=== PATIENT | female | born 1955 | race Caucasian/White ===

== ENCOUNTER → 2016-11-05 | Outpatient (CLI) | payer OTHER ==
--- NOTE | 2016-11-05 10:22 | REPMRS ---
Patient History The patient states she has not had a clinical breast exam in over a year. Patient is postmenopausal and has history of high-risk lesion on a previous biopsy. No known family history of cancer. Benign excisional biopsy of the left breast, 2004. High risk excisional biopsy of the left breast. Took tamoxifen for 5 years. Digital Woman Screen Mammo: November 05, 2016 - Exam #: [id number] Bilateral CC and MLO view(s) were taken. Technologist: Virgen Yoder, Technologist Prior study comparison: November 09, 2015, digital woman screen mammo performed at [facility]. November 08, 2014, digital woman screen mammo performed at [facility]. FINDINGS: The breast tissue is heterogeneously dense. This may lower the sensitivity of mammography. There has been no change in the appearance of the mammogram from the prior studies. There is a moderate amount of residual fibroglandular tissue which is fairly symmetric. There is no interval development of dominant mass, areas of architectural distortion, or clustered microcalcification typical of malignancy. ASSESSMENT: BI-RADS/ACR category 1 mammogram. Negative. Recommendation Routine screening mammogram in 1 year (for women over age 40). This mammogram was interpreted with the aid of an FDA-approved computer-aided dectection system. Electronically Signed By: Mario Phillips MD 11/05/16 [id number]
== END ==
LOC: M WHC 09:09
PROVIDERS: ATTEND Family Medicine
DX: Z12.31 Encounter for screening mammogram for malignant neoplasm of breast (principal); R92.8 Other abnormal and inconclusive findings on diagnostic imaging of breast; Z78.0 Asymptomatic menopausal state

== ENCOUNTER → 2017-08-05 | Outpatient (CLI) | payer OTHER | LOC: M WUC 12:28 | DX: S63.601A Unspecified sprain of right thumb, initial encounter (principal); X58.XXXA Exposure to other specified factors, initial encounter; Y92.89 Other specified places as the place of occurrence of the external cause; Y99.9 Unspecified external cause status; Y93.9 Activity, unspecified ==

== ENCOUNTER → 2017-11-19 | Outpatient (CLI) | payer OTHER | LOC: M WHC 10:00 | DX: Z12.31 Encounter for screening mammogram for malignant neoplasm of breast (principal); M89.9 Disorder of bone, unspecified | CPT/HCPCS: 77067 ==

== ENCOUNTER → 2017-11-21 | Outpatient (CLI) | payer OTHER ==
[2017-11-21 18:11] LABS: ANION GAP 9 MEQ/L (8-16); BLOOD UREA NITROGEN 15 MG/DL (7-18); CALCIUM LEVEL 9.1 MG/DL (8.8-10.2); CARBON DIOXIDE LEVEL 28 MEQ/L (21-32); CHLORIDE LEVEL 106 MEQ/L (98-107); CHOLESTEROL LEVEL 198 MG/DL (<200); CHOLESTEROL RISK RATIO 4.212 (<5); CREATININE FOR GFR 0.53 MG/DL (0.55-1.30); GLOMERULAR FILTRATION RATE > 60.0 (>45); GLUCOSE, FASTING 80 MG/DL (70-100); HDL CHOLESTEROL 47 MG/DL (>40); NON-HDL-C 151 MG/DL; POTASSIUM SERUM 4.4 MEQ/L (3.5-5.1); SODIUM LEVEL 143 MEQ/L (136-145); TRIGLYCERIDES LEVEL 110 MG/DL (<150)
== END ==
LOC: M WUC 08:19
DX: Z00.00 Encounter for general adult medical examination without abnormal findings (principal)

== ENCOUNTER 2018-02-11 06:02 | Emergency (ER) | payer OTHER ==
[2018-02-11] MEDS: MECLIZINE 25 MG TABLET PO (07:33)
[2018-02-11 07:50] LABS: BASO % 0.4 % (0.0-1.0); EOS % 0.1 % (0.0-3.0); HEMATOCRIT 41.9 % (36.0-47.0); HEMOGLOBIN 13.8 g/dl (12.0-15.5); IMMATURE GRANULOCYTE % 0.8 % (0-3.0); LYMPH % 11.3 % (24.0-44.0); MEAN CORPUSCULAR HEMOGLOBIN 31.2 pg (27.0-33.0); MEAN CORPUSCULAR HGB CONC 32.9 g/dl (32.0-36.5); MEAN CORPUSCULAR VOLUME 94.6 fl (80.0-96.0); MONO # 0.6 10^3/uL (0.0-0.8); MONO % 6.9 % (0.0-5.0); NEUTROPHILS # 6.7 10^3/uL (1.8-7.7); NEUTROPHILS % 80.5 % (36.0-66.0); PLATELET COUNT, AUTOMATED 245 10^3/uL (150-450); RED BLOOD COUNT 4.43 10^6/uL (4.00-5.40); RED CELL DISTRIBUTION WIDTH 12.3 % (11.5-14.5); WHITE BLOOD COUNT 8.4 10^3/uL (4.0-10.0)
[2018-02-11 08:18] LABS: ANION GAP 8 MEQ/L (8-16); BLOOD UREA NITROGEN 13 MG/DL (7-18); CALCIUM LEVEL 8.8 MG/DL (8.8-10.2); CARBON DIOXIDE LEVEL 26 MEQ/L (21-32); CHLORIDE LEVEL 106 MEQ/L (98-107); CPK CREATINE PHOSPHOKINASE 73 U/L (26-192); CREATININE FOR GFR 0.58 MG/DL (0.55-1.30); GLOMERULAR FILTRATION RATE > 60.0 (>45); GLUCOSE, FASTING 110 MG/DL (70-100); MB/CK RELATIVE INDEX 3.56 (< OR =4); SODIUM LEVEL 140 MEQ/L (136-145); TROPONIN I < 0.02 NG/ML (< 0.10)
== END 2018-02-11 10:08 | disposition home or self-care (01) ==
LOC: M ED 06:02
DX: H83.09 Labyrinthitis, unspecified ear (principal); M06.9 Rheumatoid arthritis, unspecified; K21.9 Gastro-esophageal reflux disease without esophagitis; Z79.899 Other long term (current) drug therapy
CPT/HCPCS: 70450

== ENCOUNTER → 2018-03-08 | Outpatient (REF) | payer OTHER ==
[~2018-03-08] MED LIST: MECL-68 PO; NABU-126; OMEP40CA2; SULF50TA
== END ==
LOC: M WUC 12:41
PROVIDERS: ATTEND Physician Assistant
DX: N39.0 Urinary tract infection, site not specified (principal)

== ENCOUNTER → 2018-03-25 | Outpatient (CLI) | payer OTHER ==
[2018-03-25 19:59] LABS: BLOOD UREA NITROGEN 15 MG/DL (7-18); CALCIUM LEVEL 9.1 MG/DL (8.8-10.2); CARBON DIOXIDE LEVEL 29 MEQ/L (21-32); CHLORIDE LEVEL 106 MEQ/L (98-107); GLOMERULAR FILTRATION RATE > 60.0 (>45); GLUCOSE, FASTING 92 MG/DL (70-100); POTASSIUM SERUM 4.2 MEQ/L (3.5-5.1); SODIUM LEVEL 142 MEQ/L (136-145)
== END ==
LOC: M WUC 17:59
PROVIDERS: ATTEND Physician Assistant
DX: I10 Essential (primary) hypertension (principal)

== ENCOUNTER → 2018-11-13 | Outpatient (CLI) | payer BC ==
[2018-11-13 19:09] LABS: BASO % 0.7 % (0.0-1.0); EOS % 0.2 % (0.0-3.0); HEMATOCRIT 42.7 % (36.0-47.0); HEMOGLOBIN 13.5 g/dl (12.0-15.5); LYMPH # 1.2 10^3/uL (1.5-4.5); LYMPH % 26.4 % (24.0-44.0); MEAN CORPUSCULAR HEMOGLOBIN 30.6 pg (27.0-33.0); MEAN CORPUSCULAR HGB CONC 31.6 g/dl (32.0-36.5); MEAN CORPUSCULAR VOLUME 96.8 fl (80.0-96.0); MONO # 0.5 10^3/uL (0.0-0.8); MONO % 12.1 % (0.0-5.0); NEUTROPHILS # 2.7 10^3/uL (1.8-7.7); NEUTROPHILS % 59.5 % (36.0-66.0); PLATELET COUNT, AUTOMATED 270 10^3/uL (150-450); RED BLOOD COUNT 4.41 10^6/uL (4.00-5.40); WHITE BLOOD COUNT 4.5 10^3/uL (4.0-10.0)
[2018-11-13 19:31] LABS: ALBUMIN 3.9 GM/DL (3.2-5.2); ALT/SGPT 33 U/L (12-78); BILIRUBIN,TOTAL 0.4 MG/DL (0.2-1.0); BLOOD UREA NITROGEN 12 MG/DL (7-18); CARBON DIOXIDE LEVEL 30 MEQ/L (21-32); CHLORIDE LEVEL 109 MEQ/L (98-107); CHOLESTEROL LEVEL 196 MG/DL (<200); CHOLESTEROL RISK RATIO 3.769 (<5); CREATININE FOR GFR 0.57 MG/DL (0.55-1.30); GLOMERULAR FILTRATION RATE > 60.0 (>45); GLUCOSE, FASTING 88 MG/DL (70-100); HDL CHOLESTEROL 52 MG/DL (>40); LDL CHOLESTEROL 125 MG/DL (<100); NON-HDL-C 144 MG/DL; POTASSIUM SERUM 4.9 MEQ/L (3.5-5.1); SODIUM LEVEL 142 MEQ/L (136-145); TRIGLYCERIDES LEVEL 95 MG/DL (<150)
== END ==
LOC: M WUC 08:10
PROVIDERS: ATTEND Physician Assistant
DX: M05.40 Rheumatoid myopathy with rheumatoid arthritis of unspecified site (principal); I10 Essential (primary) hypertension

== ENCOUNTER → 2018-12-03 | Outpatient (CLI) | payer BC ==
--- NOTE | 2018-12-03 15:39 | REP ---
BILATERAL MAMMOGRAM WITH 3D TOMOSYNTHESIS: Family history of breast cancer in sister at age 56. [facility] lifetime risk of breast cancer 12.6%. Bilateral mammography performed in the MLO and CC projections with 3D tomosynthesis. Comparison made with prior studies, most recent of which is 11/19/2017. Multiple new pleomorphic ductal type calcifications are seen in the outer left breast somewhat posteriorly. These are pleomorphic and appear suspicious. No other cluster of microcalcifications are seen. There is no mass or architectural distortion. IMPRESSION: BIRADS 0: BI-RADS/ACR category 0 mammogram, Incomplete: Need additional imaging evaluation and/or prior mammograms for comparison. Multiple new clustered pleomorphic ductal type calcifications in the outer left breast posteriorly. Recommend magnification views to further evaluate. This mammogram was interpreted with the aid of an FDA-approved computer-aided detection system. The patient states she has not had a clinical breast exam in over a year. The patient letter being requested is M0.
== END ==
LOC: M WHC 12:47
PROVIDERS: ATTEND Physician Assistant
DX: R92.2 Inconclusive mammogram (principal); Z80.3 Family history of malignant neoplasm of breast

== ENCOUNTER → 2018-12-16 | Outpatient (CLI) | payer BC ==
--- NOTE | 2018-12-16 09:37 | REP ---
DIAGNOSTIC MAMMOGRAM OF THE LEFT BREAST: Multiple magnification views of the left breast performed and correlated with the recent mammogram of 12/03/2018, and compared to prior studies. These additional magnification views confirm the presence of multiple pleomorphic ductal type microcalcifications in the outer left breast posteriorly. These are suspicious. Stereotactic biopsy is recommended. IMPRESSION: BIRADS 4: BI-RADS/ACR category 4 mammogram. Suspicious Abnormality - biopsy should be considered. Clustered pleomorphic ductal microcalcifications outer left breast posteriorly. Recommend stereotactic biopsy and postprocedure mammogram. ACR 4 suspicious. The patient letter being requested is M4. Electronically Signed by Mario Phillips MD 12/16/2018 05:48 P
== END ==
LOC: M RAD 08:04
PROVIDERS: ATTEND Physician Assistant
DX: R92.0 Mammographic microcalcification found on diagnostic imaging of breast (principal)

== ENCOUNTER → 2019-04-23 | Outpatient (CLI) | payer BC ==
[~2019-04-23] MED LIST changes: -MECL-68 PO; +MECL1TAB31 PO; -OMEP40CA2; +OMEP40CA97
[2019-04-23 18:50] LABS: ALBUMIN 3.6 GM/DL (3.2-5.2)
== END ==
LOC: M WUC 08:15
PROVIDERS: ATTEND Physician Assistant Medical
DX: Z79.899 Other long term (current) drug therapy (principal)

== ENCOUNTER → 2019-08-27 | Outpatient (CLI) | payer BC ==
[~2019-08-27] MED LIST changes: +AMLO25TA PO; +EFFE37.5 PO; +SULF500T41; -SULF50TA; +TAMO20TA8 PO
== END ==
LOC: M LABSMTC 08:15
PROVIDERS: ATTEND Anesthesiology
DX: Z03.818 Encounter for observation for suspected exposure to other biological agents ruled out (principal); Z11.59 Encounter for screening for other viral diseases
CPT/HCPCS: C9803; U0003

== ENCOUNTER 2019-08-30 09:16 | Day surgery (SDC) | payer BC ==
[~2019-08-30] VITALS: Ht 170.2 cm; Wt 74.8 kg
[~2019-08-30 09:16] MED LIST changes: -NABU-126; +NABU-51 PO; +NS 1,000 ML IV ONE; -OMEP40CA97; +OMEP40CA97 PO; -SULF500T41; +SULF500T41 PO
[2019-08-30] MEDS ORDERED: propofoL 200 MG/20 ML VIAL As Ordered ONE (10:04)
[2019-08-30] MEDS ORDERED: LIDOCAINE 2% 100MG/5ML SDV (FOR ANES.) As Ordered ONE (10:04)
--- NOTE | 2019-08-30 10:56 | ROOR ---
Patient Name: Janett Tovar Procedure Date: 08/30/2019 10:04 AM Date of : 1955 Age: 63 Room: [facility] Gender: Female Note Status: Finalized Procedure: Colonoscopy Indications: Screening for colorectal malignant neoplasm Providers: Zafar Calles MD Referring MD: Germania Burrows MD Requesting Provider: Medicines: Monitored Anesthesia Care Complications: No immediate complications. Procedure: Pre-Anesthesia Assessment: - Prior to the procedure, a History and Physical was performed, and patient medications and allergies were reviewed. The patient is competent. The risks and benefits of the procedure and the sedation options and risks were discussed with the patient. All questions were answered and informed consent was obtained. Patient identification and proposed procedure were verified by the physician, the nurse and the anesthesiologist in the procedure room. Mental Status Examination: alert and oriented. Airway Examination: normal oropharyngeal airway and neck mobility. Respiratory Examination: clear to auscultation. CV Examination: normal. Prophylactic Antibiotics: The patient does not require prophylactic antibiotics. Prior Anticoagulants: The patient has taken no previous anticoagulant or antiplatelet agents. ASA Grade Assessment: II - A patient with mild systemic disease. After reviewing the risks and benefits, the patient was deemed in satisfactory condition to undergo the procedure. The anesthesia plan was to use monitored anesthesia care (MAC). Immediately prior to administration of medications, the patient was re-assessed for adequacy to receive sedatives. The heart rate, respiratory rate, oxygen saturations, blood pressure, adequacy of pulmonary ventilation, and response to care were monitored throughout the procedure. The physical status of the patient was re-assessed after the procedure. The Colonoscope was introduced through the anus and advanced to the terminal ileum, with identification of the appendiceal orifice and IC valve. The colonoscopy was performed without difficulty. The patient tolerated the procedure well. The quality of the bowel preparation was good. The terminal ileum, ileocecal valve, appendiceal orifice, and rectum were photographed. Scope insertion time was 3 minutes. Scope withdrawal time was 9 minutes. The total duration of the procedure was 12 minutes. Findings: The perianal and digital rectal examinations were normal. The terminal ileum appeared normal. Four sessile polyps were found in the recto-sigmoid colon. The polyps were 4 to 8 mm in size. These polyps were removed with a cold snare and Jumbo forceps. Resection and retrieval were complete. Verification of patient identification for the specimen was done by the physician and nurse using the patient's name, date and medical record number. Estimated blood loss was minimal. Multiple small and large-mouthed diverticula were found from sigmoid to ascending colon. There was evidence of diverticular spasm. There was no evidence of diverticular bleeding. Non-bleeding external and internal hemorrhoids were found during retroflexion. The hemorrhoids were medium-sized. Impression: - The examined portion of the ileum was normal. - Four 4 to 8 mm polyps at the recto-sigmoid colon. Resected and retrieved. - Severe diverticulosis from sigmoid to ascending colon. There was evidence of diverticular spasm. There was no evidence of diverticular bleeding. - Non-bleeding external and internal hemorrhoids. Recommendation: - Patient has a contact number available for emergencies. The signs and symptoms of potential delayed complications were discussed with the patient. Return to normal activities tomorrow. Written discharge instructions were provided to the patient. - High fiber diet. - Continue present medications. - Use fiber, for example Citrucel, Fibercon, Konsyl or Metamucil. - Await pathology results. - Repeat colonoscopy in 3 - 5 years for surveillance of multiple polyps. - Telephone GI clinic for pathology results in 2 weeks. - Return to primary care physician. Zafar Calles MD Zafar Calles MD 08/30/2019 10:56:49 AM Electronically signed by Zafar Calles MD Number of Addenda: 0 Note Initiated On: 08/30/2019 10:04 AM Estimated Blood Loss: Estimated blood loss was minimal.
[2019-08-30 11:17] VITALS: BP 107/63
== END 2019-08-30 11:19 | disposition home or self-care (01) ==
LOC: M OPP 09:16
PROVIDERS: ATTEND Internal Medicine Gastroenterology
DX: Z12.11 Encounter for screening for malignant neoplasm of colon (principal); K57.30 Diverticulosis of large intestine without perforation or abscess without bleeding; K63.5 Polyp of colon; K64.8 Other hemorrhoids; Z87.891 Personal history of nicotine dependence; Z85.3 Personal history of malignant neoplasm of breast

== ENCOUNTER 2019-09-25 16:05 | Inpatient (IN) | payer BC ==
[~2019-09-25] VITALS: Ht 170.2 cm; Wt 77.1 kg
[~2019-09-25 16:05] MED LIST changes: -NS 1,000 ML IV ONE
[2019-09-25] MEDS ORDERED: ISOVUE-370 76% 100ML VIAL As Ordered ONE (17:30)
[2019-09-25 17:40] LABS: BASO % 0.2 % (0.0-1.0); HEMATOCRIT 41.5 % (36.0-47.0); HEMOGLOBIN 13.3 g/dl (12.0-15.5); LYMPH # 0.7 10^3/uL (1.5-5.0); LYMPH % 4.2 % (24.0-44.0); MEAN CORPUSCULAR HEMOGLOBIN 30.3 pg (27.0-33.0); MEAN CORPUSCULAR VOLUME 94.5 fl (80.0-96.0); MONO # 1.2 10^3/uL (0.0-0.8); MONO % 7.5 % (0.0-5.0); NEUTROPHILS % 87.4 % (36.0-66.0); PLATELET COUNT, AUTOMATED 211 10^3/uL (150-450); RED BLOOD COUNT 4.39 10^6/uL (4.00-5.40)
--- NOTE | 2019-09-25 17:56 | REPVR ---
PROCEDURE INFORMATION: Exam: CT Abdomen And Pelvis With Contrast Exam date and time: 09/25/2019 5:32 PM Age: 63 years old Clinical indication: Abdominal pain; Generalized; Additional info: Severe abdminal pain; Upper>lower TECHNIQUE: Imaging protocol: Computed tomography of the abdomen and pelvis with intravenous contrast. Radiation optimization: All CT scans at this facility use at least one of these dose optimization techniques: automated exposure control; mA and/or kV adjustment per patient size (includes targeted exams where dose is matched to clinical indication); or iterative reconstruction. Contrast material: ISOVUE 370; Contrast volume: 100 ml; Contrast route: INTRAVENOUS (IV); COMPARISON: No relevant prior studies available. FINDINGS: Lungs: Mild bilateral centrilobular emphysematous changes at the lung bases. Mediastinal space: A moderate hiatal hernia is present. Liver: There is a diffuse decrease in hepatic parenchymal density, consistent with steatosis. Gallbladder and bile ducts: There is moderate diffuse gallbladder wall thickening, intraluminal calculi with a small amount of sludge, and pericholecystic inflammatory changes consistent with moderate acute cholecystitis. Note is made of a gallstone which appears to be lodged within the gallbladder neck. Pancreas: Normal. No ductal dilation. Spleen: Normal. No splenomegaly. Adrenals: There is bilateral adrenal hyperplasia. 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 No follow-up suggested. Stomach and bowel: Moderate diverticulosis is present in the distal colon. No diverticulitis. Appendix: No evidence of appendicitis. Intraperitoneal space: Unremarkable. No free air. No significant fluid collection. Vasculature: The aorta demonstrates mild atherosclerotic calcification. Lymph nodes: Inflammatory peripancreatic and terri hepatis lymph nodes measure up to 10 mm. Bladder: Mid and posterior compartment pelvic floor prolapse. Reproductive: Unremarkable as visualized. Bones/joints: Mild central spinal stenosis L3-L4 and moderate central spinal stenosis at L4-L5. Disc space narrowing L5-S1. Soft tissues: Unremarkable. IMPRESSION: 1. Acute cholecystitis without evidence of gallbladder perforation or abscess. 2. There is a diffuse decrease in hepatic parenchymal density, consistent with steatosis. 3. A moderate hiatal hernia is present. 4. There is bilateral adrenal hyperplasia. 5. Inflammatory peripancreatic and terri hepatis lymph nodes measure up to 10 mm. 6. 7 mm angiomyolipoma lower pole left kidney. No follow-up suggested. 7. Mid and posterior compartment pelvic floor prolapse. 8. Moderate diverticulosis is present in the distal colon. No diverticulitis. Electronically signed by: Salvador Hassan On 09/25/2019 17:56:49 PM
[2019-09-25 18:01] LABS: ALBUMIN 3.5 GM/DL (3.2-5.2); BILIRUBIN,DIRECT 0.3 MG/DL (0.0-0.2); BILIRUBIN,TOTAL 0.7 MG/DL (0.2-1.0); TOTAL PROTEIN 6.8 GM/DL (6.4-8.2)
[2019-09-25] MEDS ORDERED: MORPHINE 4 MG/ML 1ML VIAL/SYRINGE (J2270) IV ONE (18:45)
[2019-09-25] MEDS ORDERED: PIPERACILLIN/TAZOBACTAM SOD 3.375 GM in D5W MINI-BAG PLUS 50 ML IV ONE (18:45)
[2019-09-25] MEDS ORDERED: ONDANSETRON 4MG/2ML VIAL IV ONE (18:45)
[2019-09-25] MEDS ORDERED: AMLO1TAB25 PO (19:00)
[2019-09-25] MEDS ORDERED: SULF1TAB30 PO (19:00)
[2019-09-25] MEDS ORDERED: MIDAZOLAM INJ 2MG/2ML VIAL (J2250 PER 1MG) As Ordered ONE (19:13)
[2019-09-25] MEDS ORDERED: ROCURONIUM BROMIDE 50 MG/5 ML VIAL As Ordered ONE ×2 (19:14→22:51)
[2019-09-25] MEDS ORDERED: ONDANSETRON 4MG/2ML VIAL As Ordered ONE ×2 (19:14→22:01)
[2019-09-25] MEDS ORDERED: propofoL 200 MG/20 ML VIAL As Ordered ONE (19:14)
[2019-09-25] MEDS ORDERED: fentaNYL 100 MCG/2 ML INJECTION (J3010) As Ordered ONE ×2 (19:14→22:50)
[2019-09-25] MEDS ORDERED: LIDOCAINE 2% 100MG/5ML SDV (FOR ANES.) As Ordered ONE (19:14)
[2019-09-25] MEDS ORDERED: dexameTHASONE 4 MG/ML 1ML VIAL (J1100 PER 1MG) As Ordered ONE (19:14)
[2019-09-25] MEDS ORDERED: KETOROLAC 30 MG/ML 1ML VIAL IV PRN (19:45)
[2019-09-25] MEDS ORDERED: ONDANSETRON 4MG/2ML VIAL IV PRN (19:45)
[2019-09-25] MEDS ORDERED: MORPHINE 2 MG/ML 1ML VIAL (J2270) IV PRN (19:45)
[2019-09-25] MEDS: NS 1,000 ML IV SCH (20:12)
[2019-09-25] MEDS ORDERED: BUPIVACAINE HCL 0.25% 30ML VIAL As Ordered ONE (21:37)
[2019-09-25] MEDS ORDERED: ACETAMINOPHEN 1000MG 100ML IV BTL (OFIRMEV) (J0131 PER 10MG) As Ordered ONE (21:55)
[2019-09-25] MEDS ORDERED: GLYCOPYRROLATE INJ 0.2 MG/ML 2 ML VIAL As Ordered ONE (22:01)
[2019-09-25] MEDS ORDERED: KETOROLAC 60MG 2ML VIAL As Ordered ONE (22:01)
[2019-09-25] MEDS ORDERED: NEOSTIGMINE 10MG/10ML VIAL (J2710 PER 0.5MG) As Ordered ONE (22:02)
[2019-09-25] MEDS ORDERED: LABETALOL 100MG/20ML VIAL As Ordered ONE (22:20)
[2019-09-26] MEDS ORDERED: ePHEDrine SULFATE 25 MG/5 ML(5MG/ML) SYRINGE As Ordered ONE (00:25)
[2019-09-26] MEDS ORDERED: ZOSYN 3.375GM VIAL (J2543) As Ordered ONE (00:39)
[2019-09-26] MEDS ORDERED: oxyCODONE 5MG TAB PO PRN (01:00)
[2019-09-26] MEDS ORDERED: ONDANSETRON 4MG/2ML VIAL IV PRN (01:00)
[2019-09-26] MEDS ORDERED: KETOROLAC 30 MG/ML 1ML VIAL IV PRN (01:00)
[2019-09-26] MEDS ORDERED: LR 1,000 ML IV SCH (01:00)
[2019-09-26] MEDS: PIPERACILLIN/TAZOBACTAM SOD 3.375 GM in D5W MINI-BAG PLUS 50 ML IV SCH ×4 (01:00→18:03)
[2019-09-26] MEDS ORDERED: METOCLOPRAMIDE INJ 10MG/2ML VIAL (J2765 PER 1) IV PRN (01:00)
[2019-09-26] MEDS ORDERED: fentaNYL 100 MCG/2 ML INJECTION (J3010) IV PRN (01:00)
[2019-09-26] MEDS ORDERED: HYDROMORPHONE HCL 0.5 MG/ 0.5 ML SYRINGE (J1170 PER 1) IV PRN (01:00)
[2019-09-26] MEDS ORDERED: ACETAMINOPHEN TAB 650MG DOSE (2X325MG) PO PRN (01:15)
[2019-09-26 02:00] VITALS: BP 97/56
[2019-09-26 06:00] VITALS: BP 110/55
[2019-09-26] MEDS: NS 1,000 ML IV SCH (06:20)
[2019-09-26 06:22] LABS: BASO % 0.1 % (0.0-1.0); HEMATOCRIT 37.6 % (36.0-47.0); HEMOGLOBIN 11.9 g/dl (12.0-15.5); LYMPH # 0.9 10^3/uL (1.5-5.0); LYMPH % 6.3 % (24.0-44.0); MEAN CORPUSCULAR HEMOGLOBIN 30.6 pg (27.0-33.0); MEAN CORPUSCULAR HGB CONC 31.6 g/dl (32.0-36.5); MEAN CORPUSCULAR VOLUME 96.7 fl (80.0-96.0); MONO % 7.2 % (0.0-5.0); NEUTROPHILS # 12.2 10^3/uL (1.5-8.5); PLATELET COUNT, AUTOMATED 177 10^3/uL (150-450); RED BLOOD COUNT 3.89 10^6/uL (4.00-5.40); WHITE BLOOD COUNT 14.2 10^3/uL (4.0-10.0)
[2019-09-26 06:51] LABS: ALBUMIN 2.5 GM/DL (3.2-5.2); ALT/SGPT 55 U/L (12-78); BILIRUBIN,TOTAL 0.6 MG/DL (0.2-1.0); BLOOD UREA NITROGEN 9 MG/DL (7-18); CALCIUM LEVEL 7.7 MG/DL (8.8-10.2); CARBON DIOXIDE LEVEL 24 MEQ/L (21-32); CHLORIDE LEVEL 107 MEQ/L (98-107); CREATININE FOR GFR 0.61 MG/DL (0.55-1.30); GLOMERULAR FILTRATION RATE > 60.0 (>45); GLUCOSE, FASTING 123 MG/DL (70-100); POTASSIUM SERUM 3.7 MEQ/L (3.5-5.1); SODIUM LEVEL 139 MEQ/L (136-145); TOTAL PROTEIN 5.9 GM/DL (6.4-8.2)
[2019-09-26] MEDS: amLODIPine 10 MG TAB PO SCH (09:00)
[2019-09-26] MEDS: VENLAFAXINE **XR** 37.5 MG CAPSULE PO SCH (09:00)
[2019-09-26] MEDS: OMEPRAZOLE 20 MG CAP PO SCH (09:23)
[2019-09-26 09:30] VITALS: BP 102/58
[2019-09-26] MEDS: NABUMETONE 500 MG TAB PO SCH ×2 (09:54→21:22)
[2019-09-26] MEDS: oxyCODONE 5MG TAB PO PRN ×2 (09:55→21:21)
[2019-09-26] MEDS: ENOXAPARIN 40MG/0.4ML SYRINGE (J1650 PER 10MG) SC SCH (09:58)
[2019-09-26 10:00] VITALS: BP 115/45
[2019-09-26 14:00] VITALS: BP 117/50
[2019-09-26 22:00] VITALS: BP 104/56
[2019-09-27] MEDS: PIPERACILLIN/TAZOBACTAM SOD 3.375 GM in D5W MINI-BAG PLUS 50 ML IV SCH ×4 (01:14→18:13)
[2019-09-27 02:00] VITALS: BP 105/58
[2019-09-27 06:00] VITALS: BP 108/56
--- NOTE | 2019-09-27 06:59 | IPN ---
DATE: 09/26/2019 HISTORY: Patient is postoperative day #1 from a laparoscopic cholecystectomy for marked acute cholecystitis last evening. She was found to have significant scarring and inflammation of the gallbladder. She had said last night that she had had symptoms for only 2 day, but on further questioning today she admits that she has had episodes of pain previously though not as severe as what she experienced last evening. VITAL SIGNS: Show that she had a T-max of 100.5 at 10 o'clock this morning. Her pulse is in the 80s and 90s generally. Blood pressure is good and her oxygenation with 2 liters nasal cannula oxygen has been running in the low to mid 90s. INTAKE AND OUTPUT: Show that yesterday she does not have any recorded intake or output, though I know there was some. Her drain is recorded as having 70 mL out this morning with a good urine output. PHYSICAL EXAMINATION: The patient reports that she is feeling better with diminished pain. She appears to be breathing easily. Heart exam shows a regular rhythm. The lungs are clear. The abdomen is perhaps mildly protuberant, but she has bowel sounds present. Her drain has a small amount of serosanguineous fluid in the tubing and bulb. Her dressings are otherwise clean and dry. LABORATORY STUDIES: Show that her white count remains at 14,000 this morning with a hemoglobin of 12, hematocrit of 38 and a platelet count of 177,000. Her differential count showed 86% neutrophils, 6% lymphocytes and 7% monocytes, which is not dramatically different from last evening. Her chemistry profile shows normal electrolytes, BUN, creatinine and a glucose of 123. Her AST is minimally elevated. Gram stain from her gallbladder fluid shows many white cells and many gram-negative rods. IMPRESSION: The patient is doing well one day postoperative from her laparoscopic cholecystectomy for extensive severe acute inflammation with evidence also for some chronic scarring. Her gallbladder was aspirated for what appeared to be pus and the gram stain shows gram-negative rods. Her gallbladder came out in pieces and a drain was left in place, which appears to be functional. She has had only a minimal temperature and her white count is improved, though not returned to normal. PLAN: We will continue her on the Zosyn. I have converted her to an admission so that we can continue her on antibiotics and monitor for any signs of postoperative infection. Her diet will be advanced as tolerated. She was encouraged to be up out of bed. [facility] CENTERMorelia
[2019-09-27 07:03] LABS: BASO % 0.2 % (0.0-1.0); EOS # 0.2 10^3/uL (0.0-0.5); EOS % 2.5 % (0.0-3.0); HEMATOCRIT 37.1 % (36.0-47.0); HEMOGLOBIN 11.6 g/dl (12.0-15.5); LYMPH # 0.9 10^3/uL (1.5-5.0); LYMPH % 9.8 % (24.0-44.0); MEAN CORPUSCULAR HEMOGLOBIN 30.4 pg (27.0-33.0); MEAN CORPUSCULAR HGB CONC 31.3 g/dl (32.0-36.5); MEAN CORPUSCULAR VOLUME 97.4 fl (80.0-96.0); MONO # 0.9 10^3/uL (0.0-0.8); MONO % 10.1 % (0.0-5.0); NEUTROPHILS # 7.2 10^3/uL (1.5-8.5); NEUTROPHILS % 76.8 % (36.0-66.0); PLATELET COUNT, AUTOMATED 156 10^3/uL (150-450); RED BLOOD COUNT 3.81 10^6/uL (4.00-5.40); WHITE BLOOD COUNT 9.4 10^3/uL (4.0-10.0)
[2019-09-27 07:26] LABS: ALBUMIN 2.3 GM/DL (3.2-5.2); ALT/SGPT 40 U/L (12-78); BILIRUBIN,TOTAL 0.6 MG/DL (0.2-1.0); BLOOD UREA NITROGEN 8 MG/DL (7-18); CALCIUM LEVEL 8.1 MG/DL (8.8-10.2); CARBON DIOXIDE LEVEL 29 MEQ/L (21-32); CHLORIDE LEVEL 108 MEQ/L (98-107); GLOMERULAR FILTRATION RATE > 60.0 (>45); GLUCOSE, FASTING 98 MG/DL (70-100); POTASSIUM SERUM 3.8 MEQ/L (3.5-5.1); SODIUM LEVEL 142 MEQ/L (136-145); TOTAL PROTEIN 5.3 GM/DL (6.4-8.2)
[2019-09-27] MEDS: amLODIPine 10 MG TAB PO SCH (08:34)
[2019-09-27] MEDS: VENLAFAXINE **XR** 37.5 MG CAPSULE PO SCH (08:34)
[2019-09-27] MEDS: ENOXAPARIN 40MG/0.4ML SYRINGE (J1650 PER 10MG) SC SCH (08:34)
[2019-09-27] MEDS: NABUMETONE 500 MG TAB PO SCH ×2 (08:34→21:00)
[2019-09-27] MEDS: OMEPRAZOLE 20 MG CAP PO SCH (08:34)
[2019-09-27 10:00] VITALS: BP 128/58
[2019-09-27 14:00] VITALS: BP 128/58
[2019-09-27 22:00] VITALS: BP 110/68
[2019-09-28] MEDS: PIPERACILLIN/TAZOBACTAM SOD 3.375 GM in D5W MINI-BAG PLUS 50 ML IV SCH ×2 (01:34→06:21)
[2019-09-28 06:00] VITALS: BP 128/72
[2019-09-28] MEDS ORDERED: AMOX875T2 PO (08:11)
[2019-09-28] MEDS: NABUMETONE 500 MG TAB PO SCH (08:40)
[2019-09-28 08:41] VITALS: BP 128/72
[2019-09-28] MEDS: amLODIPine 10 MG TAB PO SCH (08:41)
[2019-09-28] MEDS: OMEPRAZOLE 20 MG CAP PO SCH (08:41)
[2019-09-28] MEDS: VENLAFAXINE **XR** 37.5 MG CAPSULE PO SCH (08:41)
--- NOTE | 2019-09-28 16:54 | IPN ---
DATE: 09/27/2019 HISTORY: The patient is now postop day #2 from a laparoscopic cholecystectomy for severe acute and chronic cholecystitis. I drained some purulent appearing fluid from the gallbladder and have been awaiting results of the culture. She has a drain in place in the subhepatic space. Vital signs show that she had remained afebrile over the past 24 hours. Her pulse is generally in the 80s to as high as 102 at times. Her blood pressure is good. Intake and output show that yesterday she had 5200 in recorded with 1145 out. Her drain had 70 mL out yesterday and only 30 mL this morning. Her urine output has been adequate. PHYSICAL EXAMINATION: The patient is lying quietly in the hospital bed. She denies any significant pain at this time. She has no nausea. She has been tolerating a diet well. She reports passage of flatus. Heart exam shows a regular rhythm. The abdomen is mildly protuberant. She has bowel sounds present. The abdomen is soft with no unexpected tenderness. The drain has a small amount of serosanguineous fluid in the bulb. Laboratory studies show white count of 9, hemoglobin 12, hematocrit 37, and a platelet count of 156,000. Differential count shows 77% neutrophils, 10% lymphocytes, and 10% monocytes. Chemistry profile shows sodium 142, potassium 3.8, chloride 108, CO2 of 29, BUN of 8, creatinine 0.5, and glucose of 98. Total protein and albumin are both slightly depressed at 5.3 and 2.3. Culture as of today is still pending. The gram stain showed many gram-negative rods. PLAN: The patient will be continued on her Zosyn. I will continue this until I have her final culture results. We will continue to monitor her and I will continue her drain for now. I anticipate she may well be ready for discharge tomorrow probably on some oral antibiotics to complete a week of therapy. KEN
--- NOTE | 2019-09-29 11:06 | IPN ---
DATE: 09/28/2019 HISTORY: The patient is now postop day #2-3 from a laparoscopic cholecystectomy for severe acute and chronic cholecystitis. Her surgery had finished slightly after midnight in the sheriffs of 09/26/2019 after starting late on 09/25/2019. She has her drain in place, which is putting out minimal fluid now. She has been tolerating a regular diet. Vital signs show that she has been afebrile over the past 24 hours. Pulse is in the 70s this morning. Blood pressure is good and her room air oxygen saturation is fine. Intake and output show that she had 1300 recorded in yesterday and has been voiding in the toilet. Her drain had only 30 mL recorded yesterday. PHYSICAL EXAMINATION: The patient is alert and oriented. She is not having any significant pain currently. She has had no pain medications. Heart exam shows a regular rhythm. Lungs are clear. The abdomen is perhaps mildly protuberant. Her drain has a minimal amount of serosanguineous fluid in the bulb. Drain site is clean and her three other trocar sites are clean and without evidence of infection. The abdomen is soft and without any undue tenderness. She has no new laboratory studies this morning. IMPRESSION: The patient is doing well from her cholecystectomy for acute cholecystitis. At surgery, I drained some purulent appearing fluid from the gallbladder and the gram stain showed gram-negative rods. Her culture has not been completed to date, but no identified bacterial species were reported. PLAN: The patient appears ready for discharge. I will have her drain removed and send her home. She can continue on a regular diet, but I advised her to be cautious with greasy foods at first until she sees how her system will tolerate these in the future. She can shower tomorrow, 24 hours after her drain has been removed. I will not provide her with any pain medications and she can take [id number] medicines as needed. I will give her a prescription for some Augmentin for 4 days to complete a week of antibiotics given the findings at surgery and the gram-negative rods on her gram stain. She was instructed to avoid any strenuous physical activity for about 2 weeks and should followup in the office in 10-14 days. She should call for any problems. KEN
--- NOTE | 2020-01-17 07:30 | RO ---
DATE OF OPERATION: 09/25/2019 PREOPERATIVE DIAGNOSIS: Cholelithiasis with acute cholecystitis. POSTOPERATIVE DIAGNOSIS: Severe acute cholecystitis with pericholecystic abscess secondary to cholelithiasis. PROCEDURE PERFORMED: Laparoscopic cholecystectomy with debridement of pericholecystic abscess SURGEON: Raffaele Bloom MD ANESTHESIA: General. INDICATIONS FOR PROCEDURE: The patient is a 63-year-old woman who presented to the emergency department complaining of about a day of upper abdominal pain. She was found to have tenderness in the right subcostal area[place] [address] scan showed cholelithiasis with marked changes of acute cholecystitis with evidence for a pericholecystic abscess in the gallbladder bed. She is now for a laparoscopic cholecystectomy. OPERATIVE PROCEDURE: The patient was brought to the operative room and placed on the table in a supine position. She was placed under general endotracheal anesthesia. The patient's abdomen was prepped and draped in a sterile fashion. 25% Marcaine was infiltrated at each of the trocar sites as needed. A short transverse left upper quadrant incision was made and a Veress needle was inserted. After positive hanging drop test, the abdomen was inflated with carbon dioxide gas. A 55 mm port was placed over a 5 mm scope and advanced through the abdominal wall without difficulty. Insufflation continued. Inspection showed marked inflammatory changes in the right upper quadrant with the omentum encasing the undersurface of the liver. An 11 mm port was placed just above the umbilicus and two 5 mm ports were placed in the right upper quadrant. The patient was tilted to a slight reverse Trendelenburg position and rolled slightly to the left. Using graspers and primarily blunt dissection, the encasing omentum was peeled away from the markedly distended gallbladder and undersurface of the liver. There were some denser adhesions that required lysis with the cautery. There was some spotty discoloration of the gallbladder wall consistent with small areas of necrosis. The gallbladder was tensely distended. Once the gallbladder wall was exposed, the gallbladder was aspirated and returned thick white greenish yellow fluid consistent with pus. Some of this was placed on aerobic and anaerobic culcurettes and sent to the lab for gallbladder cultures. The gallbladder was then grasped. The gallbladder wall was so thickened that even grasping the gallbladder was difficult. The gallbladder wall was quite thickened. The gallbladder could be elevated minimally with a grasper. In the area of the gallbladder neck, the peritoneum was scored using the hook cautery. Careful dissection was undertaken through the markedly edematous and inflamed pericholecystic tissues in this area. The wall of the gallbladder was identified and used as a landmark to work towards the cystic duct. The inflammation was so extensive that I was unable initially to work my way towards the cystic duct safely. I therefore worked up along the sides of the body of the gallbladder. As dissection proceeded, areas of necrosis were identified and ultimately the gallbladder was entered in several places. I attempted to dissect the gallbladder off of the underlying gallbladder bed, but the wall was quite thickened and edematous and the process was slow. Ultimately, I transected the gallbladder neck to allow better retraction. Multiple stones were dropped into the subhepatic space. The gallbladder was freed working towards the fundus. A pericholecystic abscess towards the fundus was identified and unroofed. Ultimately, a pair of scissors was used to cut through the markedly thickened and scarred gallbladder wall towards the fundus and ultimately the gallbladder was removed in pieces. A specimen retrieval bag was inserted and multiple portions of the gallbladder wall were placed into the bag. The stones were also retrieved. Larger stones were gasped with graspers and placed into the bag with the fragments of the gallbladder and smaller ones were suctioned through the suction onion topper or removed with stone grasping forceps. The right upper quadrant was then copiously irrigated to remove spilled blood and bile. Care was taken to remove all stones that had been released. The gallbladder within the pouch was set aside. Attention was turned to the gallbladder neck area. It was possible to identify the lumen of the gallbladder neck. The edges of the gallbladder were then identified and carefully dissected free circumferentially, working into the pericholecystic inflammatory tissue. As dissection proceeded, it was possible to reach the origin of the cystic duct. A #0 Vicryl Endoloop was inserted and placed around this point. There was no evidence of any bile leakage. The right upper quadrant was again copiously irrigated. The gallbladder bed was cauterized at any oozing areas. Final inspection revealed no evidence of any residual gallbladder tissue or stone. Because of the obvious marked inflammation and spillage, I elected to place a David drain. A 19 [place]ian drain was inserted through the supraumbilical trocar and placed across the subhepatic space and out through the lateral right upper quadrant trocar site. The patient was returned to a flat position. The abdomen was deflated and the trocars were all removed. It was necessary to extend the supraumbilical trocar site incision significantly to remove the markedly inflamed morcellated gallbladder within the specimen bag. This was sent for permanent pathology. The fascia along the midline was closed with interrupted simple sutures of 1-0 Vicryl. The drain was sutured to the skin with a 2-0 silk. The skin incisions were all closed with buried 4-0 Vicryl and Steri-Strips. The drain was dressed with a CHG OpSite. Sterile dressings were placed over the other incisions. The patient tolerated the procedure without apparent complication. She was awakened in the operating room, extubated and moved to the recovery room in stable condition. KEN
== END 2019-09-28 10:45 | disposition home or self-care (01) | DRG 263 ==
LOC: M ED 16:05 → M SDC 19:43 → M MS5PR 09-26 02:00 → M SDC 09-26 09:50 → M MS5PR 09-26 09:51
PROVIDERS: ADMIT Surgery; ATTEND Surgery
PROC: 0FT44ZZ Resection of Gallbladder, Percutaneous Endoscopic Approach (ICD-10-PCS; principal; 2019-09-26)
DX: K80.00 Calculus of gallbladder with acute cholecystitis without obstruction (principal); I10 Essential (primary) hypertension; K21.9 Gastro-esophageal reflux disease without esophagitis; Z85.3 Personal history of malignant neoplasm of breast; Z11.59 Encounter for screening for other viral diseases; Z90.12 Acquired absence of left breast and nipple; Z79.899 Other long term (current) drug therapy

== ENCOUNTER → 2019-11-09 | Outpatient (CLI) | payer BC ==
[~2019-11-09] MED LIST changes: +AMLO1TAB25 PO; +AMOX875T2 PO; +SULF1TAB30 PO
[2019-11-09 11:00] LABS: EOS # 0.2 10^3/uL (0.0-0.5); EOS % 4.8 % (0.0-3.0); HEMATOCRIT 45.6 % (36.0-47.0); HEMOGLOBIN 14.4 g/dl (12.0-15.5); LYMPH # 1.5 10^3/uL (1.5-5.0); LYMPH % 36.8 % (24.0-44.0); MEAN CORPUSCULAR HEMOGLOBIN 30.1 pg (27.0-33.0); MEAN CORPUSCULAR HGB CONC 31.6 g/dl (32.0-36.5); MEAN CORPUSCULAR VOLUME 95.2 fl (80.0-96.0); MONO # 0.4 10^3/uL (0.0-0.8); MONO % 9.8 % (0.0-5.0); NEUTROPHILS # 1.9 10^3/uL (1.5-8.5); NEUTROPHILS % 46.8 % (36.0-66.0); PLATELET COUNT, AUTOMATED 300 10^3/uL (150-450); RED BLOOD COUNT 4.79 10^6/uL (4.00-5.40)
[2019-11-09 11:30] LABS: ALBUMIN 3.7 GM/DL (3.2-5.2); ALT/SGPT 29 U/L (12-78); BILIRUBIN,TOTAL 0.3 MG/DL (0.2-1.0); BLOOD UREA NITROGEN 6 MG/DL (7-18); CARBON DIOXIDE LEVEL 30 MEQ/L (21-32); CHLORIDE LEVEL 108 MEQ/L (98-107); CHOLESTEROL LEVEL 227 MG/DL (<200); CHOLESTEROL RISK RATIO 4.283 (<5); GLOMERULAR FILTRATION RATE > 60.0 (>45); GLUCOSE, FASTING 84 MG/DL (70-100); HDL CHOLESTEROL 53 MG/DL (>40); LDL CHOLESTEROL 142 MG/DL (<100); NON-HDL-C 174 MG/DL; POTASSIUM SERUM 4.5 MEQ/L (3.5-5.1); SODIUM LEVEL 142 MEQ/L (136-145); TOTAL PROTEIN 6.8 GM/DL (6.4-8.2); TRIGLYCERIDES LEVEL 160 MG/DL (<150)
== END ==
LOC: M WUC 08:08
PROVIDERS: ATTEND Physician Assistant
DX: I10 Essential (primary) hypertension (principal); M05.40 Rheumatoid myopathy with rheumatoid arthritis of unspecified site

== ENCOUNTER → 2019-12-06 | Outpatient (CLI) | payer BC ==
--- NOTE | 2019-12-16 10:15 | REP ---
LEFT BREAST MAMMOGRAM WITH 3D TOMOSYNTHESIS HISTORY: Left breast cancer and mastectomy since prior mammogram. COMPARISON: 12/16/2018, 12/03/2018 as well as other prior exams. FINDINGS: Right breast mammogram performed in the MLO and CC projections with 3D tomosynthesis. There is moderate fibroglandular tissue which is unchanged. There is no new mass. No clustered microcalcifications are seen. Volpara breast density is B. IMPRESSION: ACR 1 negative mammogram right breast in this patient status post left mastectomy for breast cancer, the mastectomy performed 02/01/2019. No new mass or clustered microcalcifications right breast. Recommend follow up mammogram in one year. This mammogram was interpreted with the aid of an FDA approved computer aided detection system. Patient states her last clinical breast exam was June 2019. Send letter 1. KEN
== END ==
LOC: M WHC 06:54
PROVIDERS: ATTEND Internal Medicine Hematology & Oncology
DX: Z12.31 Encounter for screening mammogram for malignant neoplasm of breast (principal); Z90.12 Acquired absence of left breast and nipple; Z85.3 Personal history of malignant neoplasm of breast

== ENCOUNTER → 2019-12-28 | Outpatient (CLI) | payer BC ==
--- NOTE | 2020-01-05 12:09 | DEXA ---
AP SPINE L1 - L4 0.959 -1.9 -0.5 LT FEMUR TOTAL 0.920 -0.7 0.4 LT NECK 0.895 -1.0 0.3 RT FEMUR TOTAL 0.867 -1.1 0.0 RT NECK 0.808 -1.7 -0.3 TOTAL BODY TOTAL OTHER COMMENTS: There is low bone density of the spine and hips. The density of the spine is decreased 2.5% since the initial exam on 11/03/2011. The decreased 2.5% since the most recent exam on 11/19/2017. The density of the left hip has decreased 6.1% since the initial exam on 11/03/2011. The density of the left hip has decreased 4.5% since the most recent exam on 11/29/2017. The density of the right hip has decreased 12.3% since the initial exam on 11/03/2011. The density of the right hip has decreased 5.6% since the most recent exam on 11/29/2017. FOLLOW-UP: Recommendation for the next bone density exam: 2 years. KEN
== END ==
LOC: M WHC 07:45
PROVIDERS: ATTEND Family Medicine
DX: M85.88 Other specified disorders of bone density and structure, other site (principal); M85.852 Other specified disorders of bone density and structure, left thigh; M85.851 Other specified disorders of bone density and structure, right thigh

== ENCOUNTER → 2020-02-22 | Outpatient (CLI) | payer BC ==
[2020-02-22 07:18] LABS: ALBUMIN 3.5 GM/DL (3.2-5.2); BILIRUBIN,DIRECT 0.1 MG/DL (0.0-0.2); BILIRUBIN,TOTAL 0.4 MG/DL (0.2-1.0); CHOLESTEROL RISK RATIO 3.351 (<5); TOTAL PROTEIN 6.5 GM/DL (6.4-8.2)
== END ==
LOC: M LAB 06:14
PROVIDERS: ATTEND Family Medicine
DX: E78.2 Mixed hyperlipidemia (principal)

== ENCOUNTER → 2020-12-07 | Outpatient (CLI) | payer BC ==
[~2020-12-07] MED LIST changes: -NABU-51 PO; +NABU-71 PO; +OMEP40CA4 PO; -OMEP40CA97 PO
--- NOTE | 2020-12-07 08:47 | REP ---
INDICATION: SCR MAMMO/S/P L MASTECTOMY. COMPARISON: Multiple prior screening examinations, the most recent, 12/06/2019 TECHNIQUE: Digital screening (2D) mammography was performed of the right breast in the CC and MLO projections. Additionally, breast tomosynthesis (3D mammography) was performed of the right breast in the CC and MLO projections. FINDINGS: The patient is a 64-year-old status post left mastectomy for breast cancer. The patient has no breast complaints at this time. The Volpara volumetric breast density pattern is b, there are scattered areas of fibroglandular density. In the middle 3rd of the right breast lateral to and below the nipple, in the lower outer quadrant, there is a developing isodense asymmetry. IMPRESSION: BIRADS/ACR : Category 0: Incomplete, need additional imaging evaluation Developing isodense asymmetry, right breast. This mammogram was interpreted with the aid of an FDA-approved computer-aided detection system. The patient states she has not had a clinical breast examination in over a year. The patient letter being requested is M0. RECOMMENDATION: 2D focal compression of the right breast in the CC and MLO orientations, and ultrasound. <Electronically signed by Rajesh Joshi > 12/07/20 0813
== END ==
LOC: M WHC 06:48
PROVIDERS: ATTEND Internal Medicine Hematology & Oncology
DX: Z12.31 Encounter for screening mammogram for malignant neoplasm of breast (principal); R92.8 Other abnormal and inconclusive findings on diagnostic imaging of breast; Z90.12 Acquired absence of left breast and nipple; Z85.3 Personal history of malignant neoplasm of breast

== ENCOUNTER → 2020-12-20 | Outpatient (CLI) | payer BC ==
--- NOTE | 2020-12-20 12:13 | REP ---
INDICATION: RIGHT BREAST ADD VIEWS. Screening study was BI-RADS category 0 because of a possible nodular danny density. COMPARISON: Comparison study 12/07/2020 and 12/06/2019. TECHNIQUE: Magnified focal spot-compression views of the right breast are obtained in the CC and MLO projection. A true mediolateral view is obtained with 3D tomography. Targeted right breast sonography is carried out. This mammogram was interpreted with the aid of an FDA-approved computer-aided detection system. FINDINGS: Scattered fibroglandular elements are again noted. Focal spot compression views show a oval-shaped nodular density in the lateral aspect of the right breast on the CC view and in the retroareolar region on the MLO view. This is not confidently identified on the mediolateral projection. No other mammographic finding. The Volpara volumetric breast density pattern is B. Targeted ultrasound: Scanning is performed in the right breast from 8:00 to 10:00. Targeted right breast sonography demonstrates a septated cyst at the 8 o'clock position with a benign appearance measuring 5 x 3 x 5 mm 3 cm from the nipple. This is felt to account for the mammographic opacity. No suspicious sonographic features. IMPRESSION: BIRADS/ACR category 2 benign right breast mammographic and sonographic findings. RECOMMENDATION: Repeat screening mammography in 1 year for the right breast. The patient letter being requested is M1. <Electronically signed by Radu Levy > 12/20/20 0479
== END ==
LOC: M WHC 10:43
PROVIDERS: ATTEND Internal Medicine Hematology & Oncology
DX: D05.12 Intraductal carcinoma in situ of left breast (principal); N63.15 Unspecified lump in the right breast, overlapping quadrants
CPT/HCPCS: 76642; 77065; G0279

== ENCOUNTER → 2021-02-26 | Outpatient (CLI) | payer BC ==
[2021-02-26 10:53] LABS: BASO % 0.5 % (0.0-1.0); EOS # 0.3 10^3/uL (0.0-0.5); EOS % 3.2 % (0.0-3.0); HEMATOCRIT 46.8 % (36.0-47.0); LYMPH # 2.1 10^3/uL (1.5-5.0); LYMPH % 25.6 % (24.0-44.0); MEAN CORPUSCULAR HEMOGLOBIN 30.2 pg (27.0-33.0); MEAN CORPUSCULAR HGB CONC 32.1 g/dl (32.0-36.5); MEAN CORPUSCULAR VOLUME 94.4 fl (80.0-96.0); MONO # 0.9 10^3/uL (0.0-0.8); MONO % 11.1 % (2.0-8.0); NEUTROPHILS % 59.1 % (36.0-66.0); PLATELET COUNT, AUTOMATED 331 10^3/uL (150-450); RED BLOOD COUNT 4.96 10^6/uL (4.00-5.40); WHITE BLOOD COUNT 8.4 10^3/uL (4.0-10.0)
[2021-02-26 11:27] LABS: ALBUMIN 3.7 GM/DL (3.2-5.2); ALT/SGPT 31 U/L (12-78); BILIRUBIN,TOTAL 0.4 MG/DL (0.2-1.0); BLOOD UREA NITROGEN 13 MG/DL (7-18); CALCIUM LEVEL 9.5 MG/DL (8.8-10.2); CARBON DIOXIDE LEVEL 31 MEQ/L (21-32); CHLORIDE LEVEL 105 MEQ/L (98-107); CHOLESTEROL LEVEL 161 MG/DL (<200); CHOLESTEROL RISK RATIO 3.425 (<5); CREATININE FOR GFR 0.62 MG/DL (0.55-1.30); GLOMERULAR FILTRATION RATE > 60.0 (>45); GLUCOSE, FASTING 99 MG/DL (70-100); HDL CHOLESTEROL 47 MG/DL (>40); LDL CHOLESTEROL 81 MG/DL (<100); NON-HDL-C 114 MG/DL; POTASSIUM SERUM 4.8 MEQ/L (3.5-5.1); SODIUM LEVEL 141 MEQ/L (136-145); TOTAL PROTEIN 7.1 GM/DL (6.4-8.2); TRIGLYCERIDES LEVEL 167 MG/DL (<150)
== END ==
LOC: M WUC 08:01
PROVIDERS: ATTEND Family Medicine
DX: I10 Essential (primary) hypertension (principal)

== ENCOUNTER → 2021-03-05 | Outpatient (REF) | payer BC | LOC: M LAB REF 17:22 | PROVIDERS: ATTEND Family Medicine | DX: Z12.4 Encounter for screening for malignant neoplasm of cervix (principal) | CPT/HCPCS: 87624; G0123 ==

== ENCOUNTER 2021-09-07 16:52 | Inpatient (IN) | payer BC ==
[~2021-09-07] VITALS: Ht 167.6 cm; Wt 75.0 kg
[2021-09-07] MEDS ORDERED: ATOR1TAB19 PO (17:14)
[2021-09-07] MEDS ORDERED: VENL37.598 PO (17:14)
[2021-09-07] MEDS ORDERED: ONDANSETRON 4MG/2ML VIAL IV ONE (17:15)
[2021-09-07] MEDS ORDERED: MORPHINE 4 MG/ML 1ML VIAL/SYRINGE IV ONE (17:15)
[2021-09-07] MEDS ORDERED: NS 1,000 ML IV ONE (17:15)
[2021-09-07] MEDS ORDERED: ISOVUE-370 76% 100ML VIAL As Ordered ONE (17:30)
[2021-09-07 17:51] LABS: BASO % 0.3 % (0.0-1.0); EOS # 0.2 10^3/uL (0.0-0.5); EOS % 1.8 % (0.0-3.0); HEMATOCRIT 44.3 % (36.0-47.0); HEMOGLOBIN 14.2 g/dl (12.0-15.5); LYMPH # 2.9 10^3/uL (1.5-5.0); LYMPH % 27.5 % (24.0-44.0); MEAN CORPUSCULAR HEMOGLOBIN 29.5 pg (27.0-33.0); MEAN CORPUSCULAR HGB CONC 32.1 g/dl (32.0-36.5); MEAN CORPUSCULAR VOLUME 91.9 fl (80.0-96.0); MONO # 0.6 10^3/uL (0.0-0.8); NEUTROPHILS # 6.6 10^3/uL (1.5-8.5); NEUTROPHILS % 63.5 % (36.0-66.0); PLATELET COUNT, AUTOMATED 279 10^3/uL (150-450); RED BLOOD COUNT 4.82 10^6/uL (4.00-5.40); WHITE BLOOD COUNT 10.4 10^3/uL (4.0-10.0)
[2021-09-07 18:00] LABS: ALBUMIN 3.6 GM/DL (3.2-5.2); BILIRUBIN,DIRECT 0.1 MG/DL (0.0-0.2); BILIRUBIN,TOTAL 0.4 MG/DL (0.2-1.0); INR 0.91; PROTHROMBIN TIME 12.7 SECONDS (12.7-14.5); TOTAL PROTEIN 6.7 GM/DL (6.4-8.2)
[2021-09-07 18:01] LABS: PARTIAL THROMBOPLASTIN TIME 21.3 SECONDS (25.9-37.0)
[2021-09-07] MEDS ORDERED: NS IV ONE (19:40)
[2021-09-07] MEDS ORDERED: SULF500T41 PO (20:39)
[2021-09-07] MEDS ORDERED: LISI5TAB11 PO (20:39)
[2021-09-07] MEDS ORDERED: HOME MED LIST COMPLETE! XX SCH (20:40)
[2021-09-07] MEDS ORDERED: LevoFLOXacin IV 750 MG in IV 1 EA IV ONE (21:40)
[2021-09-07] MEDS ORDERED: MAALOX 30 ML SUSP *UDC PO PRN (22:30)
[2021-09-07] MEDS ORDERED: ACETAMINOPHEN TAB 650MG DOSE (2X325MG) PO PRN (22:30)
[2021-09-07] MEDS ORDERED: MOM 30ML SUSPENSION UDC PO PRN (22:30)
[2021-09-07] MEDS: metroNIDAZOLE 500 MG in IV 1 EA IV SCH (23:08)
[2021-09-08 00:12] LABS: RSV AMPLIFICATION NEGATIVE (NEGATIVE)
[2021-09-08 03:00] VITALS: BP 116/68
[2021-09-08] MEDS: HEPARIN SOD (PORCINE) 5000UNITS/ML 1ML VIAL/SYRINGE SC SCH ×3 (05:52→23:11)
[2021-09-08] MEDS: metroNIDAZOLE 500 MG in IV 1 EA IV SCH ×2 (05:55→14:29)
[2021-09-08 06:17] LABS: BASO % 0.1 % (0.0-1.0); HEMOGLOBIN 13.1 g/dl (12.0-15.5); LYMPH # 1.2 10^3/uL (1.5-5.0); LYMPH % 10.1 % (24.0-44.0); MEAN CORPUSCULAR VOLUME 93.8 fl (80.0-96.0); MONO # 0.7 10^3/uL (0.0-0.8); MONO % 6.1 % (2.0-8.0); NEUTROPHILS # 9.7 10^3/uL (1.5-8.5); NEUTROPHILS % 83.3 % (36.0-66.0); PLATELET COUNT, AUTOMATED 237 10^3/uL (150-450); RED BLOOD COUNT 4.37 10^6/uL (4.00-5.40); WHITE BLOOD COUNT 11.7 10^3/uL (4.0-10.0)
[2021-09-08 06:37] LABS: ALBUMIN 3.1 GM/DL (3.2-5.2); ALT/SGPT 60 U/L (12-78); BILIRUBIN,TOTAL 0.4 MG/DL (0.2-1.0); BLOOD UREA NITROGEN 17 MG/DL (7-18); CALCIUM LEVEL 8.5 MG/DL (8.8-10.2); CARBON DIOXIDE LEVEL 24 MEQ/L (21-32); CHLORIDE LEVEL 113 MEQ/L (98-107); CREATININE FOR GFR 0.58 MG/DL (0.55-1.30); GLOMERULAR FILTRATION RATE > 60.0 (>45); GLUCOSE, FASTING 110 MG/DL (70-100); MAGNESIUM LEVEL 2.1 MG/DL (1.8-2.4); SODIUM LEVEL 143 MEQ/L (136-145); TOTAL PROTEIN 6.4 GM/DL (6.4-8.2)
[2021-09-08] MEDS ORDERED: BISACODYL 10 MG SUPP PR ONE (08:30)
[2021-09-08] MEDS: OMEPRAZOLE 20MG CAP PO SCH (10:16)
[2021-09-08] MEDS: MIRALAX *UNIT DOSE* 17GM PACKET PO SCH ×2 (10:16→23:11)
[2021-09-08] MEDS: SENOKOT S TAB PO SCH ×2 (10:16→23:11)
[2021-09-08] MEDS: sulfaSALAzine 500 MG TABEC PO SCH ×3 (10:16→21:00)
[2021-09-08] MEDS: TAMOXIFEN CITRATE 10 MG TAB PO SCH (10:17)
[2021-09-08] MEDS: VENLAFAXINE **XR** 37.5 MG CAPSULE PO SCH (10:17)
[2021-09-08] MEDS ORDERED: ALBUTEROL SULFATE 2.5 MG/0.5 ML INH NEB SOLN NEB ONE (11:30)
[2021-09-08 14:00] VITALS: BP_SYST 128; BP_DIAS 62; BP_DIAS 72
[2021-09-08] MEDS: ALBUTEROL SULFATE 2.5 MG/0.5 ML INH NEB SOLN NEB SCH (20:00)
[2021-09-08 20:59] VITALS: BP 108/66
[2021-09-08] MEDS ORDERED: LevoFLOXacin IV 750 MG in IV 1 EA IV SCH (22:00)
[2021-09-09] MEDS: metroNIDAZOLE 500 MG in IV 1 EA IV SCH ×2 (01:09→06:24)
[2021-09-09 06:00] VITALS: BP 131/73
[2021-09-09] MEDS: HEPARIN SOD (PORCINE) 5000UNITS/ML 1ML VIAL/SYRINGE SC SCH (06:24)
[2021-09-09] MEDS: ALBUTEROL SULFATE 2.5 MG/0.5 ML INH NEB SOLN NEB SCH (07:09)
[2021-09-09] MEDS ORDERED: MIRA1POW3 PO (10:13)
[2021-09-09] MEDS ORDERED: COLA100C5 PO (10:13)
[2021-09-09] MEDS ORDERED: AMOX875T2 PO (10:13)
[2021-09-09] MEDS: VENLAFAXINE **XR** 37.5 MG CAPSULE PO SCH (10:14)
[2021-09-09] MEDS: MIRALAX *UNIT DOSE* 17GM PACKET PO SCH (10:14)
[2021-09-09] MEDS: OMEPRAZOLE 20MG CAP PO SCH (10:15)
[2021-09-09] MEDS: SENOKOT S TAB PO SCH (10:15)
[2021-09-09] MEDS: TAMOXIFEN CITRATE 10 MG TAB PO SCH (10:15)
[2021-09-09] MEDS: sulfaSALAzine 500 MG TABEC PO SCH (10:15)
== END 2021-09-09 11:27 | disposition home or self-care (01) | DRG 137 ==
LOC: M ED 16:52 → M ED INP 22:26 → ENRESERV 09-08 00:20 → M MSPAV 09-08 02:23
PROVIDERS: ADMIT Family Medicine; ATTEND Internal Medicine Nephrology
DX: J69.0 Pneumonitis due to inhalation of food and vomit (principal); K21.9 Gastro-esophageal reflux disease without esophagitis; M06.9 Rheumatoid arthritis, unspecified; R93.89 Abnormal findings on diagnostic imaging of other specified body structures; J43.9 Emphysema, unspecified; K57.32 Diverticulitis of large intestine without perforation or abscess without bleeding; K56.41 Fecal impaction; K42.9 Umbilical hernia without obstruction or gangrene; K44.9 Diaphragmatic hernia without obstruction or gangrene; K64.9 Unspecified hemorrhoids; Z90.49 Acquired absence of other specified parts of digestive tract; Z90.12 Acquired absence of left breast and nipple; Z85.3 Personal history of malignant neoplasm of breast; Z79.899 Other long term (current) drug therapy

== ENCOUNTER → 2021-10-20 | Outpatient (CLI) | payer BC ==
[~2021-10-20] MED LIST changes: +ATOR1TAB19 PO; +COLA100C5 PO; +LISI5TAB11 PO; +MIRA1POW3 PO; +VENL37.598 PO
== END ==
LOC: M LABSMTC 10:42
PROVIDERS: ATTEND Anesthesiology
DX: Z01.812 Encounter for preprocedural laboratory examination (principal); Z20.822 Contact with and (suspected) exposure to COVID-19

== ENCOUNTER 2021-10-24 10:10 | Day surgery (SDC) | payer BC ==
[~2021-10-24] VITALS: Ht 167.6 cm; Wt 74.4 kg
[~2021-10-24 10:10] MED LIST changes: +NS 1,000 ML IV ONE
[2021-10-24] MEDS ORDERED: LIDOCAINE 2% 100MG/5ML SDV (FOR ANES.) As Ordered ONE (10:15)
[2021-10-24] MEDS ORDERED: propofoL 200 MG/20 ML VIAL As Ordered ONE (10:15)
[2021-10-24 12:55] VITALS: BP 141/80
== END 2021-10-24 12:56 | disposition home or self-care (01) ==
LOC: M OPP 10:10
PROVIDERS: ATTEND Surgery
DX: R93.3 Abnormal findings on diagnostic imaging of other parts of digestive tract (principal); K57.30 Diverticulosis of large intestine without perforation or abscess without bleeding; I10 Essential (primary) hypertension; K21.9 Gastro-esophageal reflux disease without esophagitis; M06.9 Rheumatoid arthritis, unspecified; Z85.3 Personal history of malignant neoplasm of breast

== ENCOUNTER → 2021-12-09 | Outpatient (CLI) | payer BC ==
[~2021-12-09] MED LIST changes: -NS 1,000 ML IV ONE
== END ==
LOC: M WHC 06:57
PROVIDERS: ATTEND Internal Medicine Hematology & Oncology
DX: Z12.31 Encounter for screening mammogram for malignant neoplasm of breast (principal); Z85.3 Personal history of malignant neoplasm of breast; Z90.12 Acquired absence of left breast and nipple

== ENCOUNTER → 2021-12-19 | Outpatient (CLI) | payer BC | LOC: M WHC 07:57 | PROVIDERS: ATTEND Family Medicine | DX: Z13.820 Encounter for screening for osteoporosis (principal); M85.852 Other specified disorders of bone density and structure, left thigh; M85.88 Other specified disorders of bone density and structure, other site ==

== ENCOUNTER → 2022-02-25 | Outpatient (CLI) | payer BC ==
[2022-02-25 10:38] LABS: BASO % 0.5 % (0.0-1.0); EOS % 0.3 % (0.0-3.0); HEMATOCRIT 46.1 % (36.0-47.0); HEMOGLOBIN 14.2 g/dl (12.0-15.5); LYMPH # 1.8 10^3/uL (1.5-5.0); LYMPH % 31.7 % (24.0-44.0); MEAN CORPUSCULAR HEMOGLOBIN 30.4 pg (27.0-33.0); MEAN CORPUSCULAR HGB CONC 30.8 g/dl (32.0-36.5); MEAN CORPUSCULAR VOLUME 98.7 fl (80.0-96.0); MONO # 0.6 10^3/uL (0.0-0.8); MONO % 10.4 % (2.0-8.0); NEUTROPHILS # 3.2 10^3/uL (1.5-8.5); NEUTROPHILS % 56.4 % (36.0-66.0); PLATELET COUNT, AUTOMATED 295 10^3/uL (150-450); RED BLOOD COUNT 4.67 10^6/uL (4.00-5.40); WHITE BLOOD COUNT 5.8 10^3/uL (4.0-10.0)
[2022-02-25 11:35] LABS: ALBUMIN 3.6 G/DL (3.2-5.2); ALKALINE PHOSPHATASE 73 U/L (46-116); ALT/SGPT 47 U/L (7.0-40); AST/SGOT 38 U/L (<34); BILIRUBIN,TOTAL 0.4 MG/DL (0.3-1.2); BLOOD UREA NITROGEN 12 MG/DL (9-23); CALCIUM LEVEL 8.7 MG/DL (8.3-10.6); CARBON DIOXIDE LEVEL 30 MMOL/L (20-31); CHLORIDE LEVEL 106 MMOL/L (98-107); CHOLESTEROL LEVEL 186 MG/DL (<200); CHOLESTEROL RISK RATIO 3.63 (<5); CREATININE FOR GFR 0.52 MG/DL (0.55-1.30); GLOMERULAR FILTRATION RATE > 60.0 (>45); GLUCOSE, FASTING 89 MG/DL (74-106); HDL CHOLESTEROL 51.2 MG/DL (>40); NON-HDL-C 135 MG/DL; POTASSIUM SERUM 4.5 MMOL/L (3.5-5.1); SODIUM LEVEL 141 MMOL/L (136-145); TOTAL PROTEIN 6.8 G/DL (5.7-8.2); TRIGLYCERIDES LEVEL 154 MG/DL (<150)
== END ==
LOC: M WUC 08:02
PROVIDERS: ATTEND Family Medicine
DX: I10 Essential (primary) hypertension (principal)

== ENCOUNTER → 2022-03-12 | Outpatient (REF) | payer BC | LOC: M LAB REF 17:26 | PROVIDERS: ATTEND Family Medicine | DX: Z01.419 Encounter for gynecological examination (general) (routine) without abnormal findings (principal) | CPT/HCPCS: 87624; G0123 ==

== ENCOUNTER 2022-05-28 06:06 | Inpatient (IN) | payer BC ==
[~2022-05-28] VITALS: Ht 167.6 cm; Wt 73.9 kg
[2022-05-28] MEDS ORDERED: ONDANSETRON 4MG 2ML VIAL IV ONE (06:40)
[2022-05-28] MEDS ORDERED: MORPHINE 4 MG/ML 1ML VIAL IV ONE (06:40)
[2022-05-28] MEDS ORDERED: NS 1,000 ML IV ONE (06:40)
[2022-05-28 06:44] LABS: BASO # 0.1 10^3/uL (0.0-0.2); BASO % 0.3 % (0.0-1.0); HEMATOCRIT 49.3 % (36.0-47.0); HEMOGLOBIN 15.8 g/dl (12.0-15.5); LYMPH # 1.3 10^3/uL (1.5-5.0); LYMPH % 7.1 % (24.0-44.0); MEAN CORPUSCULAR HEMOGLOBIN 29.9 pg (27.0-33.0); MEAN CORPUSCULAR VOLUME 93.2 fl (80.0-96.0); MONO # 1.2 10^3/uL (0.0-0.8); MONO % 6.6 % (2.0-8.0); NEUTROPHILS % 85.4 % (36.0-66.0); PLATELET COUNT, AUTOMATED 274 10^3/uL (150-450); RED BLOOD COUNT 5.29 10^6/uL (4.00-5.40); WHITE BLOOD COUNT 18.7 10^3/uL (4.0-10.0)
[2022-05-28 06:58] LABS: INR 1.04; PARTIAL THROMBOPLASTIN TIME 22.8 SECONDS (24.8-34.2); PROTHROMBIN TIME 13.8 SECONDS (12.5-14.5)
[2022-05-28 07:14] LABS: LIPASE 33 U/L (12-53)
[2022-05-28 07:16] LABS: ALBUMIN 3.7 G/DL (3.2-5.2); ALKALINE PHOSPHATASE 66 U/L (46-116); ALT/SGPT 37 U/L (7.0-40); AST/SGOT 33 U/L (<34); BILIRUBIN,DIRECT 0.5 MG/DL (<0.4); BILIRUBIN,TOTAL 1.1 MG/DL (0.3-1.2); BLOOD UREA NITROGEN 20 MG/DL (9-23); CARBON DIOXIDE LEVEL 26 MMOL/L (20-31); CHLORIDE LEVEL 102 MMOL/L (98-107); CREATININE FOR GFR 0.65 MG/DL (0.55-1.30); GLOMERULAR FILTRATION RATE > 60.0 (>45); GLUCOSE, FASTING 124 MG/DL (74-106); POTASSIUM SERUM 4.7 MMOL/L (3.5-5.1); SODIUM LEVEL 136 MMOL/L (136-145); TOTAL PROTEIN 6.6 G/DL (5.7-8.2)
[2022-05-28] MEDS ORDERED: ISOVUE-370 76% 100ML VIAL As Ordered ONE (07:22)
[2022-05-28] MEDS ORDERED: AMLO1TAB24 PO (07:35)
[2022-05-28] MEDS ORDERED: PIPERACILLIN/TAZOBACTAM SOD 3.375 GM in D5W MINI-BAG PLUS 50 ML IV ONE (07:50)
[2022-05-28] MEDS ORDERED: GLUCAGON INJ 1MG VIAL SC PRN (09:00)
[2022-05-28] MEDS ORDERED: DEXTROSE 50% 50ML SYRINGE IV PRN (09:00)
[2022-05-28] MEDS ORDERED: GLUCOSE 4GM CHEW TABLET PO PRN (09:00)
[2022-05-28] MEDS ORDERED: HOME MED LIST COMPLETE! XX SCH (09:00)
[2022-05-28] MEDS ORDERED: ACETAMINOPHEN TAB 650MG DOSE (2X325MG) PO PRN (09:00)
[2022-05-28] MEDS ORDERED: MORPHINE 2 MG/ML 1ML VIAL IV PRN ×2 (09:05→20:45)
[2022-05-28] MEDS ORDERED: ONDANSETRON 4MG 2ML VIAL IV PRN (09:05)
[2022-05-28 09:37] LABS: RSV AMPLIFICATION NEGATIVE (NEGATIVE)
[2022-05-28] MEDS: ENOXAPARIN 40MG/0.4ML SYRINGE (J1650 PER 10MG) SC SCH (09:39)
[2022-05-28 10:00] VITALS: BP 123/63
[2022-05-28] MEDS: LR 1,000 ML IV SCH (10:51)
[2022-05-28] MEDS: sulfaSALAzine 500 MG TABEC PO SCH ×2 (11:36→21:09)
[2022-05-28] MEDS: VENLAFAXINE **XR** 37.5 MG CAPSULE PO SCH (11:36)
[2022-05-28] MEDS: TAMOXIFEN CITRATE 10 MG TAB PO SCH (11:37)
[2022-05-28] MEDS: INSULIN LISPRO (NovoLOG) PER UNIT SC SCH ×2 (12:00→17:14)
[2022-05-28 14:10] VITALS: BP 120/62
[2022-05-28 20:47] VITALS: BP 122/66
[2022-05-28] MEDS: KETOROLAC 30 MG/ML 1ML VIAL IV PRN (21:09)
[2022-05-29] MEDS: LR 1,000 ML IV SCH (04:22)
[2022-05-29 05:02] VITALS: BP 148/81
[2022-05-29] MEDS: KETOROLAC 30 MG/ML 1ML VIAL IV PRN (05:28)
[2022-05-29] MEDS: INSULIN LISPRO (NovoLOG) PER UNIT SC SCH ×2 (06:00)
[2022-05-29 06:37] LABS: HEMATOCRIT 47.4 % (36.0-47.0); HEMOGLOBIN 14.9 g/dl (12.0-15.5); MEAN CORPUSCULAR HEMOGLOBIN 30.4 pg (27.0-33.0); MEAN CORPUSCULAR HGB CONC 31.4 g/dl (32.0-36.5); MEAN CORPUSCULAR VOLUME 96.7 fl (80.0-96.0); PLATELET COUNT, AUTOMATED 240 10^3/uL (150-450); WHITE BLOOD COUNT 13.6 10^3/uL (4.0-10.0)
[2022-05-29 07:05] LABS: BLOOD UREA NITROGEN 22 MG/DL (9-23); CALCIUM LEVEL 8.5 MG/DL (8.3-10.6); CARBON DIOXIDE LEVEL 24 MMOL/L (20-31); CHLORIDE LEVEL 103 MMOL/L (98-107); CREATININE FOR GFR 0.56 MG/DL (0.55-1.30); GLOMERULAR FILTRATION RATE > 60.0 (>45); GLUCOSE, FASTING 79 MG/DL (74-106); POTASSIUM SERUM 4.5 MMOL/L (3.5-5.1); SODIUM LEVEL 139 MMOL/L (136-145)
[2022-05-29] MEDS: ENOXAPARIN 40MG/0.4ML SYRINGE (J1650 PER 10MG) SC SCH (09:03)
[2022-05-29] MEDS: sulfaSALAzine 500 MG TABEC PO SCH ×2 (09:03→20:32)
[2022-05-29] MEDS: TAMOXIFEN CITRATE 10 MG TAB PO SCH (09:03)
[2022-05-29] MEDS: OMEPRAZOLE 20MG CAP PO SCH (09:05)
[2022-05-29] MEDS: lisinopriL 5 MG TAB PO SCH (09:05)
[2022-05-29] MEDS: amLODIPine 5 MG TAB PO SCH (09:05)
[2022-05-29] MEDS: VENLAFAXINE **XR** 37.5 MG CAPSULE PO SCH (09:05)
[2022-05-29] MEDS ORDERED: DOCUSATE SODIUM 100MG CAPSULE PO PRN (09:25)
[2022-05-29 14:44] VITALS: BP 140/77
[2022-05-29 20:53] VITALS: BP 150/78
[2022-05-30 06:27] VITALS: BP_SYST 119; BP_SYST 138; BP_DIAS 68; BP_DIAS 75
[2022-05-30] MEDS ORDERED: MIRALAX *UNIT DOSE* 17GM PACKET PO ONE (07:35)
[2022-05-30] MEDS: TAMOXIFEN CITRATE 10 MG TAB PO SCH (08:09)
[2022-05-30] MEDS: ENOXAPARIN 40MG/0.4ML SYRINGE (J1650 PER 10MG) SC SCH (08:09)
[2022-05-30] MEDS: sulfaSALAzine 500 MG TABEC PO SCH ×2 (08:10→20:44)
[2022-05-30] MEDS: VENLAFAXINE **XR** 37.5 MG CAPSULE PO SCH (08:10)
[2022-05-30] MEDS: OMEPRAZOLE 20MG CAP PO SCH (08:10)
[2022-05-30] MEDS: amLODIPine 5 MG TAB PO SCH (08:12)
[2022-05-30] MEDS: lisinopriL 5 MG TAB PO SCH (08:12)
[2022-05-30] MEDS: GASTROGRAFIN SOLUTION 30ML PO SCH ×2 (10:03→10:33)
[2022-05-30 14:00] VITALS: BP 125/58
[2022-05-30] MEDS: metroNIDAZOLE (FLAGYL) 500MG TABLET PO SCH ×2 (15:33→20:44)
[2022-05-30] MEDS: CIPROFLOXACIN 400 MG in IV 1 EA IV SCH (15:37)
[2022-05-30 20:45] VITALS: BP 153/78
[2022-05-31] MEDS: CIPROFLOXACIN 400 MG in IV 1 EA IV SCH (03:40)
[2022-05-31] MEDS: metroNIDAZOLE (FLAGYL) 500MG TABLET PO SCH (05:27)
[2022-05-31 06:37] VITALS: BP 150/79
[2022-05-31 07:24] LABS: HEMATOCRIT 39.2 % (36.0-47.0); HEMOGLOBIN 12.7 g/dl (12.0-15.5); MEAN CORPUSCULAR HEMOGLOBIN 30.7 pg (27.0-33.0); MEAN CORPUSCULAR HGB CONC 32.4 g/dl (32.0-36.5); MEAN CORPUSCULAR VOLUME 94.7 fl (80.0-96.0); PLATELET COUNT, AUTOMATED 211 10^3/uL (150-450); RED BLOOD COUNT 4.14 10^6/uL (4.00-5.40); WHITE BLOOD COUNT 4.8 10^3/uL (4.0-10.0)
[2022-05-31 07:47] LABS: BLOOD UREA NITROGEN 5 MG/DL (9-23); CALCIUM LEVEL 8.1 MG/DL (8.3-10.6); CARBON DIOXIDE LEVEL 30 MMOL/L (20-31); CHLORIDE LEVEL 105 MMOL/L (98-107); CREATININE FOR GFR 0.45 MG/DL (0.55-1.30); GLOMERULAR FILTRATION RATE > 60.0 (>45); GLUCOSE, FASTING 89 MG/DL (74-106); POTASSIUM SERUM 3.3 MMOL/L (3.5-5.1); SODIUM LEVEL 139 MMOL/L (136-145)
[2022-05-31] MEDS ORDERED: POTASSIUM CHLORIDE 10MEQ SR TABLET PO ONE (09:00)
[2022-05-31] MEDS: TAMOXIFEN CITRATE 10 MG TAB PO SCH (09:48)
[2022-05-31] MEDS: ENOXAPARIN 40MG/0.4ML SYRINGE (J1650 PER 10MG) SC SCH (09:48)
[2022-05-31 09:50] VITALS: BP 147/82
[2022-05-31] MEDS: amLODIPine 5 MG TAB PO SCH (09:50)
[2022-05-31] MEDS: OMEPRAZOLE 20MG CAP PO SCH (09:50)
[2022-05-31] MEDS: sulfaSALAzine 500 MG TABEC PO SCH (09:51)
[2022-05-31] MEDS: VENLAFAXINE **XR** 37.5 MG CAPSULE PO SCH (09:51)
[2022-05-31] MEDS: lisinopriL 5 MG TAB PO SCH (09:51)
[2022-05-31] MEDS ORDERED: CIPR-249 PO (09:58)
[2022-05-31] MEDS ORDERED: METR-265 PO (09:58)
[2022-05-31] MEDS ORDERED: CIPROFLOXACIN 500MG TABLET PO SCH (18:00)
== END 2022-05-31 14:05 | disposition home or self-care (01) | DRG 247 ==
LOC: M ED 06:06 → M ED INP 08:19 → ENRESERV 09:37 → M MS5PR 10:40
PROVIDERS: ADMIT Internal Medicine; ATTEND Internal Medicine
DX: K56.7 Ileus, unspecified (principal); I10 Essential (primary) hypertension; K21.9 Gastro-esophageal reflux disease without esophagitis; M06.9 Rheumatoid arthritis, unspecified; K44.9 Diaphragmatic hernia without obstruction or gangrene; F32.A Depression, unspecified; K52.9 Noninfective gastroenteritis and colitis, unspecified; D72.829 Elevated white blood cell count, unspecified; F41.9 Anxiety disorder, unspecified; Z85.3 Personal history of malignant neoplasm of breast; Z90.12 Acquired absence of left breast and nipple; Z79.899 Other long term (current) drug therapy; Z90.49 Acquired absence of other specified parts of digestive tract; Z87.891 Personal history of nicotine dependence

== ENCOUNTER → 2022-06-21 | Outpatient (CLI) | payer BC, MEDICARE ==
[~2022-06-21] MED LIST changes: +AMLO1TAB24 PO; +CIPR-249 PO; +METR-265 PO
== END ==
LOC: M SLEEP 20:00
PROVIDERS: ATTEND Physician Assistant
DX: G47.30 Sleep apnea, unspecified (principal)

== ENCOUNTER → 2022-12-01 | Outpatient (CLI) | payer BC ==
[~2022-12-01] MED LIST changes: +MECL-209 PO; -MECL1TAB31 PO
[2022-12-01 11:50] LABS: BLOOD UREA NITROGEN 16 MG/DL (9-23); GLOMERULAR FILTRATION RATE > 60.0 (>45)
== END ==
LOC: M WUC 08:04
PROVIDERS: ATTEND Internal Medicine Pulmonary Disease
DX: R09.02 Hypoxemia (principal)

== ENCOUNTER → 2023-08-14 | Outpatient (REF) | payer BC ==
[~2023-08-14] MED LIST changes: -EFFE37.5 PO; +EFFE37.52 PO; -MIRA1POW3 PO; +MIRA33506 PO
[2023-08-14 12:14] LABS: BASO % 0.6 % (0.0-1.0); EOS % 0.2 % (0.0-3.0); HEMATOCRIT 43.9 % (36.0-47.0); HEMOGLOBIN 14.1 g/dl (12.0-15.5); LYMPH # 1.8 10^3/uL (1.5-5.0); LYMPH % 35.3 % (24.0-44.0); MEAN CORPUSCULAR HEMOGLOBIN 30.7 pg (27.0-33.0); MEAN CORPUSCULAR HGB CONC 32.1 g/dl (32.0-36.5); MEAN CORPUSCULAR VOLUME 95.6 fl (80.0-96.0); MONO # 0.5 10^3/uL (0.0-0.8); MONO % 9.6 % (2.0-8.0); NEUTROPHILS # 2.7 10^3/uL (1.5-8.5); NEUTROPHILS % 53.7 % (36.0-66.0); PLATELET COUNT, AUTOMATED 275 10^3/uL (150-450); RED BLOOD COUNT 4.59 10^6/uL (4.00-5.40)
[2023-08-14 12:45] LABS: ALBUMIN 3.6 G/DL (3.2-5.2); ALKALINE PHOSPHATASE 66 U/L (46-116); ALT/SGPT 29 U/L (7.0-40); AST/SGOT 14 U/L (<34); BILIRUBIN,TOTAL 0.5 MG/DL (0.3-1.2); BLOOD UREA NITROGEN 13 MG/DL (9-23); CALCIUM LEVEL 9.2 MG/DL (8.3-10.6); CARBON DIOXIDE LEVEL 31 MMOL/L (20-31); CHLORIDE LEVEL 105 MMOL/L (98-107); CHOLESTEROL LEVEL 216 MG/DL (<200); CHOLESTEROL RISK RATIO 4.16 (<5); CREATININE FOR GFR 0.52 MG/DL (0.55-1.30); GLOMERULAR FILTRATION RATE > 60.0 (>45); GLUCOSE, FASTING 92 MG/DL (74-106); HDL CHOLESTEROL 51.8 MG/DL (>40); LDL CHOLESTEROL 121.8 MG/DL (<100); NON-HDL-C 164.2 MG/DL; POTASSIUM SERUM 4.8 MMOL/L (3.5-5.1); SODIUM LEVEL 140 MMOL/L (136-145); TOTAL PROTEIN 6.5 G/DL (5.7-8.2); TRIGLYCERIDES LEVEL 212 MG/DL (<150)
== END ==
LOC: M LABWUC 10:38
PROVIDERS: ATTEND Family Medicine
DX: I10 Essential (primary) hypertension (principal)

== ENCOUNTER → 2023-12-16 | Outpatient (CLI) | payer MEDICARE | LOC: M WHC 07:34 | PROVIDERS: ATTEND Internal Medicine Hematology & Oncology | DX: Z12.31 Encounter for screening mammogram for malignant neoplasm of breast (principal); Z90.12 Acquired absence of left breast and nipple; Z85.3 Personal history of malignant neoplasm of breast | CPT/HCPCS: 77067; G0279 ==

== ENCOUNTER → 2024-01-27 | Outpatient (CLI) | payer MEDICARE, OTHER | LOC: M WHC 07:30 | PROVIDERS: ATTEND Family Medicine | DX: M85.88 Other specified disorders of bone density and structure, other site (principal); Z13.820 Encounter for screening for osteoporosis ==

== ENCOUNTER → 2024-07-04 | Outpatient (CLI) | payer MEDICARE ==
[2024-07-04 14:38] LABS: BASO % 0.6 % (0.0-1.0); EOS # 0.1 10^3/uL (0.0-0.5); EOS % 1.7 % (0.0-3.0); HEMATOCRIT 45.8 % (36.0-47.0); HEMOGLOBIN 14.3 g/dl (12.0-15.5); LYMPH # 1.4 10^3/uL (1.5-5.0); LYMPH % 27.6 % (24.0-44.0); MEAN CORPUSCULAR HEMOGLOBIN 29.3 pg (27.0-33.0); MEAN CORPUSCULAR HGB CONC 31.2 g/dl (32.0-36.5); MEAN CORPUSCULAR VOLUME 93.9 fl (80.0-96.0); MONO # 0.6 10^3/uL (0.0-0.8); MONO % 10.6 % (2.0-8.0); NEUTROPHILS % 58.3 % (36.0-66.0); PLATELET COUNT, AUTOMATED 281 10^3/uL (150-450); RED BLOOD COUNT 4.88 10^6/uL (4.00-5.40); WHITE BLOOD COUNT 5.2 10^3/uL (4.0-10.0)
[2024-07-04 15:11] LABS: ALBUMIN 3.7 G/DL (3.2-5.2); ALKALINE PHOSPHATASE 99 U/L (35-104); ALT/SGPT 39 U/L (7.0-40); AST/SGOT 28 U/L (<34); BILIRUBIN,TOTAL 0.4 MG/DL (0.3-1.2); BLOOD UREA NITROGEN 11 MG/DL (9-23); CALCIUM LEVEL 9.4 MG/DL (8.3-10.6); CARBON DIOXIDE LEVEL 31 MMOL/L (20-31); CHLORIDE LEVEL 105 MMOL/L (98-107); CHOLESTEROL LEVEL 220 MG/DL (<200); CHOLESTEROL RISK RATIO 4.42 (<5); CREATININE FOR GFR 0.54 MG/DL (0.55-1.30); GLOMERULAR FILTRATION RATE > 90.0 (>45); GLUCOSE, FASTING 92 MG/DL (74-106); HDL CHOLESTEROL 49.7 MG/DL (>40); LDL CHOLESTEROL 142.5 MG/DL (<100); NON-HDL-C 170.3 MG/DL; POTASSIUM SERUM 4.4 MMOL/L (3.5-5.1); SODIUM LEVEL 144 MMOL/L (136-145); TOTAL PROTEIN 6.8 G/DL (5.7-8.2); TRIGLYCERIDES LEVEL 139 MG/DL (<150)
== END ==
LOC: M WUC 08:21
PROVIDERS: ATTEND Family Medicine
DX: I10 Essential (primary) hypertension (principal)

== ENCOUNTER → 2024-10-06 | Outpatient (CLI) | payer MEDICARE | LOC: M CARPUL 12:32 | PROVIDERS: ATTEND Family Medicine | DX: R60.0 Localized edema (principal); I27.20 Pulmonary hypertension, unspecified; M79.89 Other specified soft tissue disorders; Z85.3 Personal history of malignant neoplasm of breast ==

== ENCOUNTER → 2024-10-10 | Outpatient (CLI) | payer MEDICARE ==
[2024-10-10 13:16] LABS: ALT/SGPT 14 U/L (7.0-40); AST/SGOT 18 U/L (<34); CALCIUM LEVEL 8.8 MG/DL (8.3-10.6); CARBON DIOXIDE LEVEL 31 MMOL/L (20-31); CHLORIDE LEVEL 103 MMOL/L (98-107); CHOLESTEROL LEVEL 138 MG/DL (<200); CHOLESTEROL RISK RATIO 3.35 (<5); CREATININE FOR GFR 0.59 MG/DL (0.55-1.30); GLOMERULAR FILTRATION RATE > 90.0 (>45); LDL CHOLESTEROL 77.9 MG/DL (<100); MAGNESIUM LEVEL 1.8 MG/DL (1.8-2.4); NON-HDL-C 96.9 MG/DL; POTASSIUM SERUM 3.9 MMOL/L (3.5-5.1); SODIUM LEVEL 146 MMOL/L (136-145); TRIGLYCERIDES LEVEL 95 MG/DL (<150)
== END ==
LOC: M WUC 08:06
PROVIDERS: ATTEND Family Medicine
DX: E78.2 Mixed hyperlipidemia (principal); R60.0 Localized edema

== ENCOUNTER → 2024-11-17 | Outpatient (CLI) | payer MEDICARE ==
[2024-11-17 18:15] LABS: APPEARANCE, URINE HAZY (CLEAR); BACTERIA, URINE AUTO NEGATIVE (NEGATIVE); BILIRUBIN, URINE AUTO 1+ (NEGATIVE); BLOOD, URINE BLOOD NEGATIVE (NEGATIVE); GLUCOSE, URINE (UA) AUTO NEGATIVE (NEGATIVE); KETONE, URINE AUTO TRACE mg/dL (NEGATIVE); LEUKOCYTE ESTERASE, URINE AUTO NEGATIVE (NEGATIVE); MUCUS, URINE SMALL (NEGATIVE); NITRITE, URINE AUTO NEGATIVE (NEGATIVE); PROTEIN, URINE AUTO 1+ mg/dL (NEGATIVE); RBC, URINE AUTO 3 /HPF (0-3); SPECIFIC GRAVITY URINE AUTO 1.040 (1.002-1.035); SQUAMOUS EPITHELIAL CELL UR AU 18 /HPF (0-6); UROBILINOGEN, URINE AUTO 2.0 mg/dL (0.0-2.0); WBC, URINE AUTO 4 /HPF (0-3)
== END ==
LOC: M WUC 14:07
PROVIDERS: ATTEND Physician Assistant Medical
DX: M05.79 Rheumatoid arthritis with rheumatoid factor of multiple sites without organ or systems involvement (principal); M25.561 Pain in right knee; M25.562 Pain in left knee; Z79.899 Other long term (current) drug therapy

== ENCOUNTER → 2024-12-07 | Outpatient (CLI) | payer MEDICARE ==
[2024-12-07 14:40] LABS: BASO # 0.1 10^3/uL (0.0-0.2); BASO % 0.5 % (0.0-1.0); EOS # 0.1 10^3/uL (0.0-0.5); EOS % 0.5 % (0.0-3.0); LYMPH # 1.2 10^3/uL (1.5-5.0); LYMPH % 11.8 % (24.0-44.0); MONO # 0.8 10^3/uL (0.0-0.8); MONO % 8.1 % (2.0-8.0); NEUTROPHILS # 7.7 10^3/uL (1.5-8.5); NEUTROPHILS % 78.3 % (36.0-66.0); PLATELET COUNT, AUTOMATED 658 10^3/uL (150-450)
[2024-12-07 14:42] LABS: ALT/SGPT 15 U/L (7.0-40); AST/SGOT 17 U/L (<34); CALCIUM LEVEL 8.3 MG/DL (8.3-10.6); CARBON DIOXIDE LEVEL 30 MMOL/L (20-31); CHLORIDE LEVEL 103 MMOL/L (98-107); CREATININE FOR GFR 0.52 MG/DL (0.55-1.30); GLOMERULAR FILTRATION RATE > 90.0 (>45); POTASSIUM SERUM 3.0 MMOL/L (3.5-5.1); SODIUM LEVEL 141 MMOL/L (136-145)
[2024-12-07 14:46] LABS: ERYTHROCYTE SEDIMENTATION RATE 76 mm/hr (0-30)
[2024-12-07 14:48] LABS: TOTAL 25(OH) VITAMIN D 43.2 NG/ML (20.0-100.0)
[2024-12-07 14:53] LABS: C REACTIVE PROTEIN QUANTITATIV 11.79 MG/DL (<1.0)
== END ==
LOC: M WUC 08:11
PROVIDERS: ATTEND Family Medicine
DX: M05.779 Rheumatoid arthritis with rheumatoid factor of unspecified ankle and foot without organ or systems involvement (principal); R91.8 Other nonspecific abnormal finding of lung field; Z79.899 Other long term (current) drug therapy

== ENCOUNTER 2024-12-21 03:35 | Inpatient (IN) | payer MEDICARE ==
[~2024-12-21] VITALS: Ht 170.2 cm; Wt 53.9 kg
[2024-12-21 04:04] LABS: BASO # 0.0 10^3/uL (0.0-0.2); BASO % 0.3 % (0.0-1.0); EOS # 0.1 10^3/uL (0.0-0.5); EOS % 0.4 % (0.0-3.0); LYMPH # 0.9 10^3/uL (1.5-5.0); LYMPH % 6.6 % (24.0-44.0); MONO # 1.0 10^3/uL (0.0-0.8); MONO % 7.7 % (2.0-8.0); NEUTROPHILS # 11.2 10^3/uL (1.5-8.5); NEUTROPHILS % 83.9 % (36.0-66.0); PLATELET COUNT, AUTOMATED 684 10^3/uL (150-450)
[2024-12-21 05:16] LABS: ALT/SGPT 21 U/L (7.0-40); AST/SGOT 34 U/L (<34); CALCIUM LEVEL 8.2 MG/DL (8.3-10.6); CARBON DIOXIDE LEVEL 32 MMOL/L (20-31); CHLORIDE LEVEL 105 MMOL/L (98-107); CK-MB VALUE MASS 1.7 NG/ML (<3.6); CREATININE FOR GFR 0.41 MG/DL (0.55-1.30); GLOMERULAR FILTRATION RATE > 90.0 (>45); POTASSIUM SERUM 3.6 MMOL/L (3.5-5.1); SODIUM LEVEL 146 MMOL/L (136-145)
[2024-12-21 05:18] LABS: THYROXINE (T4) 10.9 UG/DL (4.5-10.9)
[2024-12-21 05:21] LABS: CPK CREATINE PHOSPHOKINASE 42 U/L (34-145); MB/CK RELATIVE INDEX 4.04 (< OR =4)
[2024-12-21] MEDS ORDERED: IPRATROPIUM 0.5 MG/ALBUTEROL 2.5 MG INH SOL UD 3 ML NEB PRN (07:35)
[2024-12-21] MEDS ORDERED: ISOVUE-370 76% 100 ML VIAL As Ordered ONE (07:44)
[2024-12-21 07:56] LABS: VENOUS BASE EXCESS 7.2 (-2.0-2.0); VENOUS HCO3 33.0 MMOL/L (23.0-27.0); VENOUS O2 SATURATION 78.3 % (60.0-80.0); VENOUS PARTIAL PRESSURE CO2 52.8 mmHg (38.0-50.0); VENOUS PARTIAL PRESSURE O2 45.7 mmHg (30.0-50.0); VENOUS PH 7.414 UNITS (7.330-7.430); VENOUS STANDARD HCO3 30.6 MMOL/L; VENOUS TOTAL CO2 34.6 MMOL/L (24.0-28.0)
[2024-12-21] MEDS: cefTRIAXone SOD 1 GM in DEXTROSE 5% (D5W) ADV/MINI-BAG 50 ML IV ONE (09:36)
[2024-12-21] MEDS: AZITHROMYCIN 250 MG TABLET PO ONE (09:36)
[2024-12-21] MEDS: IPRATROPIUM 0.5 MG/ALBUTEROL 2.5 MG INH SOL UD 3 ML NEB PRN (09:47)
[2024-12-21] MEDS ORDERED: VENTAER INH (10:55)
[2024-12-21] MEDS ORDERED: ADVA1AER10 INH (10:55)
[2024-12-21] MEDS ORDERED: ATOR1TAB19 PO (10:55)
[2024-12-21] MEDS ORDERED: HOME MED LIST COMPLETE! XX SCH (11:00)
[2024-12-21] MEDS ORDERED: MAALOX 30 ML SUSP *UDC PO PRN (17:15)
[2024-12-21] MEDS ORDERED: MOM 30 ML SUSPENSION UDC PO PRN (17:15)
[2024-12-21] MEDS: ACETAMINOPHEN 325 MG TAB PO PRN (18:39)
[2024-12-21 20:00] VITALS: O2SAT 90
[2024-12-21 20:35] VITALS: BP 145/69; TEMP 99.6; O2SAT 89
[2024-12-21] MEDS: DOXYCYCLINE HYCLATE 100 MG TABLET PO SCH (21:41)
[2024-12-21] MEDS: guaiFENesin SYRUP 200 MG/10 ML UDC PO SCH (21:41)
[2024-12-21] MEDS: LEVALBUTEROL 1.25 MG 0.5ML CONCENTRATE NEB INH SCH (21:53)
[2024-12-21] MEDS: BUDESONIDE 0.5 MG/2 ML INHALATION SUSPENSION NEB SCH (21:53)
[2024-12-21 22:00] VITALS: O2SAT 90
[2024-12-21 23:00] VITALS: O2SAT 93
[2024-12-21 23:56] VITALS: BP 139/65; TEMP 99.6; O2SAT 93
[2024-12-22] VITALS (21 sets, daily range): BP systolic 130–139; BP diastolic 62–68; TEMP 97.3–99.6; O2SAT 89–98
[2024-12-22 05:42] LABS: BASO # 0.0 10^3/uL (0.0-0.2); BASO % 0.3 % (0.0-1.0); EOS # 0.0 10^3/uL (0.0-0.5); EOS % 0.1 % (0.0-3.0); LYMPH # 1.1 10^3/uL (1.5-5.0); LYMPH % 7.7 % (24.0-44.0); MONO # 1.2 10^3/uL (0.0-0.8); MONO % 8.7 % (2.0-8.0); NEUTROPHILS # 11.6 10^3/uL (1.5-8.5); NEUTROPHILS % 82.3 % (36.0-66.0); PLATELET COUNT, AUTOMATED 685 10^3/uL (150-450)
[2024-12-22 06:08] LABS: CALCIUM LEVEL 8.3 MG/DL (8.3-10.6); CARBON DIOXIDE LEVEL 32 MMOL/L (20-31); CHLORIDE LEVEL 103 MMOL/L (98-107); CREATININE FOR GFR 0.38 MG/DL (0.55-1.30); GLOMERULAR FILTRATION RATE > 90.0 (>45); MAGNESIUM LEVEL 1.9 MG/DL (1.8-2.4); POTASSIUM SERUM 4.1 MMOL/L (3.5-5.1); SODIUM LEVEL 145 MMOL/L (136-145)
[2024-12-22] MEDS ORDERED: DEXTROSE 50% 50 ML SYRINGE IV PRN (07:10)
[2024-12-22] MEDS ORDERED: GLUCOSE 4 GM CHEW PO PRN (07:10)
[2024-12-22] MEDS ORDERED: GLUCAGON INJ 1 MG VIAL SC PRN (07:10)
[2024-12-22] MEDS: OMEPRAZOLE 20MG CAP PO SCH (09:32)
[2024-12-22] MEDS: ATORVASTATIN 10 MG TAB PO SCH (09:32)
[2024-12-22] MEDS: cefTRIAXone SOD 2 GM in DEXTROSE 5% (D5W) ADV/MINI-BAG 50 ML IV SCH (09:33)
[2024-12-22] MEDS: NS (Normal Saline) 0.9% 1,000 ML IV SCH (10:12)
[2024-12-23] VITALS (17 sets, daily range): BP systolic 111–142; BP diastolic 53–67; TEMP 97–98.7; O2SAT 87–96
[2024-12-23 05:48] LABS: BASO # 0.0 10^3/uL (0.0-0.2); BASO % 0.2 % (0.0-1.0); EOS # 0.0 10^3/uL (0.0-0.5); EOS % 0.0 % (0.0-3.0); LYMPH # 0.6 10^3/uL (1.5-5.0); LYMPH % 3.7 % (24.0-44.0); MONO # 0.5 10^3/uL (0.0-0.8); MONO % 2.8 % (2.0-8.0); NEUTROPHILS # 15.8 10^3/uL (1.5-8.5); NEUTROPHILS % 92.6 % (36.0-66.0); PLATELET COUNT, AUTOMATED 613 10^3/uL (150-450)
[2024-12-23 06:12] LABS: CALCIUM LEVEL 8.4 MG/DL (8.3-10.6); CARBON DIOXIDE LEVEL 30 MMOL/L (20-31); CHLORIDE LEVEL 105 MMOL/L (98-107); CREATININE FOR GFR 0.30 MG/DL (0.55-1.30); GLOMERULAR FILTRATION RATE > 90.0 (>45); MAGNESIUM LEVEL 1.8 MG/DL (1.8-2.4); POTASSIUM SERUM 4.4 MMOL/L (3.5-5.1); SODIUM LEVEL 145 MMOL/L (136-145)
[2024-12-23] MEDS: D5W/0.45% SODIUM CHLORIDE 1,000 ML IV SCH (09:16)
[2024-12-23] MEDS: IPRATROPIUM 0.5 MG/ALBUTEROL 2.5 MG INH SOL UD 3 ML NEB PRN (11:07)
[2024-12-23] MEDS ORDERED: EPINEPHrine 1 MG/10 ML SYRINGE 1.5IN As Ordered ONE (13:06)
[2024-12-23] MEDS ORDERED: ACETAMINOPHEN 1000MG/100ML IV BAG As Ordered ONE (13:11)
[2024-12-23] MEDS ORDERED: LIDOCAINE 2% 100 MG/5 ML SDV (FOR ANES.) As Ordered ONE (13:12)
[2024-12-23] MEDS ORDERED: ONDANSETRON 4MG 2ML VIAL As Ordered ONE (13:12)
[2024-12-23] MEDS ORDERED: dexAMETHasone 4 MG/ML 1 ML VIAL As Ordered ONE (13:12)
[2024-12-23] MEDS ORDERED: SUGAMMADEX SODIUM 500 MG/5 ML VIAL As Ordered ONE (13:12)
[2024-12-23] MEDS ORDERED: ROCURONIUM BROMIDE 50MG/5ML VIAL As Ordered ONE (13:12)
[2024-12-23] MEDS ORDERED: MIDAZOLAM INJ 2 MG/2 ML VIAL As Ordered ONE (13:15)
[2024-12-23] MEDS: CETACAINE SPRAY 5 GM As Ordered ONE (14:04)
[2024-12-23] MEDS: THROMBIN 5,000 UNITS VIAL As Ordered ONE (14:09)
[2024-12-24] VITALS (17 sets, daily range): BP systolic 127–133; BP diastolic 58–85; TEMP 97.2–98.5; O2SAT 9–97
[2024-12-24 06:11] LABS: BASO # 0.0 10^3/uL (0.0-0.2); BASO % 0.2 % (0.0-1.0); EOS # 0.0 10^3/uL (0.0-0.5); EOS % 0.0 % (0.0-3.0); LYMPH # 0.6 10^3/uL (1.5-5.0); LYMPH % 3.1 % (24.0-44.0); MONO # 0.7 10^3/uL (0.0-0.8); MONO % 3.7 % (2.0-8.0); NEUTROPHILS # 16.4 10^3/uL (1.5-8.5); NEUTROPHILS % 92.1 % (36.0-66.0); PLATELET COUNT, AUTOMATED 643 10^3/uL (150-450)
[2024-12-24 06:32] LABS: CALCIUM LEVEL 8.6 MG/DL (8.3-10.6); CARBON DIOXIDE LEVEL 34 MMOL/L (20-31); CHLORIDE LEVEL 102 MMOL/L (98-107); CREATININE FOR GFR 0.35 MG/DL (0.55-1.30); GLOMERULAR FILTRATION RATE > 90.0 (>45); MAGNESIUM LEVEL 1.8 MG/DL (1.8-2.4); POTASSIUM SERUM 4.8 MMOL/L (3.5-5.1); SODIUM LEVEL 143 MMOL/L (136-145)
[2024-12-24 08:29] LABS: ABG BASE EXCESS 6.8 (-2.0-2.0); ABG HCO3 32.9 MMOL/L (22.0-26.0); ABG O2 SATURATION 93.8 % (95.0-99.0); ABG PARTIAL PRESSURE CO2 55.1 mmHg (35.0-45.0); ABG PARTIAL PRESSURE O2 73.1 mmHg (75.0-100.0); ABG STANDARD HCO3 30.6 MMOL/L. (22.0-26.0); ABG TOTAL CO2 34.6 MMOL/L (23.0-31.0); ABG pH (ARTERIAL) 7.394 UNITS (7.350-7.450)
[2024-12-24] MEDS: ENOXAPARIN 40 MG/0.4 ML SYRINGE (J1650 PER 10MG) SC SCH (09:51)
[2024-12-25] VITALS (32 sets, daily range): BP systolic 125–187; BP diastolic 66–89; TEMP 96.9–98.5; O2SAT 89–96
[2024-12-25 07:43] LABS: BASO # 0.0 10^3/uL (0.0-0.2); BASO % 0.2 % (0.0-1.0); EOS # 0.0 10^3/uL (0.0-0.5); EOS % 0.0 % (0.0-3.0); LYMPH # 1.3 10^3/uL (1.5-5.0); LYMPH % 7.5 % (24.0-44.0); MONO # 1.4 10^3/uL (0.0-0.8); MONO % 8.4 % (2.0-8.0); NEUTROPHILS # 14.1 10^3/uL (1.5-8.5); NEUTROPHILS % 83.1 % (36.0-66.0); PLATELET COUNT, AUTOMATED 667 10^3/uL (150-450)
[2024-12-25] MEDS: MAGNESIUM CITRATE 300 ML BTL PO ONE (08:00)
[2024-12-25 08:11] LABS: CALCIUM LEVEL 8.5 MG/DL (8.3-10.6); CARBON DIOXIDE LEVEL 35 MMOL/L (20-31); CHLORIDE LEVEL 100 MMOL/L (98-107); CREATININE FOR GFR 0.31 MG/DL (0.55-1.30); GLOMERULAR FILTRATION RATE > 90.0 (>45); MAGNESIUM LEVEL 1.8 MG/DL (1.8-2.4); POTASSIUM SERUM 4.3 MMOL/L (3.5-5.1); SODIUM LEVEL 143 MMOL/L (136-145)
[2024-12-25] MEDS: BISACODYL 10 MG SUPP PR SCH (08:43)
[2024-12-25] MEDS: SENNOSIDES/DOCUSATE SODIUM 8.6 MG/50MG TAB PO SCH (08:43)
[2024-12-25] MEDS: ALPRAZolam 0.25 MG TAB PO PRN (11:20)
[2024-12-25] MEDS: ALPRAZolam 0.25 MG TAB PO ONE (12:56)
[2024-12-25 17:38] LABS: URINE STREP PNEUMONIAE ANTIGEN Not Detected (Not Detected)
[2024-12-25] MEDS: ADVAIR HFA 230/21 MCG INHALER INH SCH (19:13)
[2024-12-26] VITALS (26 sets, daily range): BP systolic 117–161; BP diastolic 57–75; TEMP 97.1–98.2; O2SAT 88–95
[2024-12-26 04:04] LABS: BASO # 0.0 10^3/uL (0.0-0.2); BASO % 0.2 % (0.0-1.0); EOS # 0.1 10^3/uL (0.0-0.5); EOS % 0.6 % (0.0-3.0); LYMPH # 1.1 10^3/uL (1.5-5.0); LYMPH % 8.1 % (24.0-44.0); MONO # 1.2 10^3/uL (0.0-0.8); MONO % 9.1 % (2.0-8.0); NEUTROPHILS # 10.6 10^3/uL (1.5-8.5); NEUTROPHILS % 80.9 % (36.0-66.0); PLATELET COUNT, AUTOMATED 665 10^3/uL (150-450)
[2024-12-26 04:34] LABS: CALCIUM LEVEL 8.7 MG/DL (8.3-10.6); CARBON DIOXIDE LEVEL 35 MMOL/L (20-31); CHLORIDE LEVEL 99 MMOL/L (98-107); CREATININE FOR GFR 0.32 MG/DL (0.55-1.30); GLOMERULAR FILTRATION RATE > 90.0 (>45); MAGNESIUM LEVEL 1.8 MG/DL (1.8-2.4); POTASSIUM SERUM 4.0 MMOL/L (3.5-5.1); SODIUM LEVEL 143 MMOL/L (136-145)
[2024-12-26 22:03] LABS: MYCOPLASMA PNEUMONIAE IGG <= 0.90 (<=0.90); MYCOPLASMA PNEUMONIAE IGM 474.0 U/mL (<770)
[2024-12-27] VITALS (24 sets, daily range): BP systolic 127–143; BP diastolic 60–68; TEMP 97.6–99; O2SAT 83–94
[2024-12-27 05:08] LABS: BASO # 0.0 10^3/uL (0.0-0.2); BASO % 0.3 % (0.0-1.0); EOS # 0.1 10^3/uL (0.0-0.5); EOS % 0.6 % (0.0-3.0); LYMPH # 0.8 10^3/uL (1.5-5.0); LYMPH % 6.3 % (24.0-44.0); MONO # 1.1 10^3/uL (0.0-0.8); MONO % 8.6 % (2.0-8.0); NEUTROPHILS # 10.8 10^3/uL (1.5-8.5); NEUTROPHILS % 82.8 % (36.0-66.0); PLATELET COUNT, AUTOMATED 627 10^3/uL (150-450)
[2024-12-27 05:23] LABS: CALCIUM LEVEL 8.5 MG/DL (8.3-10.6); CARBON DIOXIDE LEVEL 35 MMOL/L (20-31); CHLORIDE LEVEL 101 MMOL/L (98-107); CREATININE FOR GFR 0.29 MG/DL (0.55-1.30); GLOMERULAR FILTRATION RATE > 90.0 (>45); MAGNESIUM LEVEL 1.7 MG/DL (1.8-2.4); POTASSIUM SERUM 3.8 MMOL/L (3.5-5.1); SODIUM LEVEL 146 MMOL/L (136-145)
[2024-12-27] MEDS: MAG SULF 1GM/100ML (MAG RUN) 1 GM in IV 1 EA IV SCH (07:42)
[2024-12-27] MEDS ORDERED: PRED10TA2 PO (11:58)
[2024-12-27] MEDS ORDERED: ALPR0.25 PO ×2 (11:58→16:39)
[2024-12-27] MEDS ORDERED: IPRA0.00 NEB (11:58)
[2024-12-27] MEDS ORDERED: CEFD1CAP9 PO (11:58)
[2024-12-27] MEDS ORDERED: DOCU8.6T PO (11:58)
[2024-12-27] MEDS ORDERED: BISA10SU PR (11:58)
[2024-12-27] MEDS ORDERED: DOXY100T PO (11:58)
== END 2024-12-27 17:28 | disposition home or self-care (01) | DRG 180 ==
LOC: M ED 03:35 → M ED INP 17:14 → M PCU 20:32
PROVIDERS: ADMIT Student in an Organized Health Care Education/Training Program; ATTEND Student in an Organized Health Care Education/Training Program
PROC: 0BB38ZX Excision of Right Main Bronchus, Via Natural or Artificial Opening Endoscopic, Diagnostic (ICD-10-PCS; principal; 2024-12-23 09:30)
DX: C34.2 Malignant neoplasm of middle lobe, bronchus or lung (principal); J96.01 Acute respiratory failure with hypoxia; J18.9 Pneumonia, unspecified organism; J44.1 Chronic obstructive pulmonary disease with (acute) exacerbation; J98.11 Atelectasis; J44.0 Chronic obstructive pulmonary disease with (acute) lower respiratory infection; C78.89 Secondary malignant neoplasm of other digestive organs; C78.6 Secondary malignant neoplasm of retroperitoneum and peritoneum; C79.70 Secondary malignant neoplasm of unspecified adrenal gland; J96.12 Chronic respiratory failure with hypercapnia; D86.9 Sarcoidosis, unspecified; M06.9 Rheumatoid arthritis, unspecified; I10 Essential (primary) hypertension; K21.9 Gastro-esophageal reflux disease without esophagitis; D64.9 Anemia, unspecified; F17.200 Nicotine dependence, unspecified, uncomplicated; Z85.3 Personal history of malignant neoplasm of breast; Z79.899 Other long term (current) drug therapy

== ENCOUNTER → 2024-12-31 | Outpatient (CLI) | payer MEDICARE ==
[~2024-12-31] VITALS: Ht 170.2 cm; Wt 72.2 kg
[~2024-12-31] MED LIST changes: +ADVA1AER10 INH; +ALPR0.25 PO; +BISA10SU PR; +CEFD1CAP9 PO; +DOCU8.6T PO; +DOXY100T PO; +IPRA0.00 NEB; +PRED10TA2 PO; +VENTAER INH
[2024-12-31 10:00] VITALS: TEMP 98.7
[2024-12-31] MEDS: NS (Normal Saline) 0.9% 1,000 ML IV SCH (10:37)
[2024-12-31] MEDS: ceFAZolin SODIUM 2 GM in DEXTROSE 5% (D5W) ADV/MINI-BAG 50 ML IV ONE (10:37)
[2024-12-31] MEDS: MIDAZOLAM INJ 2 MG/2 ML VIAL IV PRN (11:11)
[2024-12-31] MEDS: LIDOCAINE 1% MDV 20 ML VIAL SC SCH (11:20)
[2024-12-31] MEDS: ACETAMINOPHEN 325 MG TAB PO ONE (13:17)
[2024-12-31 14:40] VITALS: BP 125/62; O2SAT 94
== END ==
LOC: M IRPRO 09:40
PROVIDERS: ATTEND General Practice
DX: C34.31 Malignant neoplasm of lower lobe, right bronchus or lung (principal)
CPT/HCPCS: 32555; 36561; 87070; 87075; 87205; J0688; J1642; J2250

== ENCOUNTER 2025-01-11 12:47 | Outpatient (RCR) | payer MEDICARE ==
[~2025-01-11 12:47] MED LIST changes: -IPRA0.00 INH; -ONDA-84 PO; +PROHANCE 279.3MG/ML 15ML VIAL As Ordered ONE; -SENN-121 PO
[2025-01-13] MEDS ORDERED: IPRA0.00 INH (08:20)
[2025-01-13] MEDS ORDERED: ALPR0.25 PO (08:20)
== END 2025-01-13 ==
LOC: M ONCR 12:47
PROVIDERS: ATTEND General Practice
DX: Z51.0 Encounter for antineoplastic radiation therapy (principal); C34.31 Malignant neoplasm of lower lobe, right bronchus or lung

== ENCOUNTER → 2025-01-11 | Outpatient (CLI) | payer MEDICARE ==
[~2025-01-11] MED LIST changes: +IPRA0.00 INH; +LIDO30CR18 TOP; +ONDA-84 PO; +SENN-121 PO
== END ==
LOC: M RAD 14:19
PROVIDERS: ATTEND Internal Medicine Pulmonary Disease
DX: J90 Pleural effusion, not elsewhere classified (principal); J98.11 Atelectasis

== ENCOUNTER 2025-01-13 02:26 | Inpatient (IN) | payer MEDICARE ==
[~2025-01-13] VITALS: Ht 170.2 cm; Wt 65.1 kg
[~2025-01-13 02:26] MED LIST changes: -PROHANCE 279.3MG/ML 15ML VIAL As Ordered ONE
[2025-01-13] MEDS: IPRATROPIUM 0.5 MG/ALBUTEROL 2.5 MG INH SOL UD 3 ML NEB ONE (02:40)
[2025-01-13] MEDS: LEVALBUTEROL 1.25 MG 0.5ML CONCENTRATE NEB NEB ONE ×2 (02:50)
[2025-01-13 02:51] LABS: VENOUS BASE EXCESS 10.3 (-2.0-2.0); VENOUS HCO3 37.9 MMOL/L (23.0-27.0); VENOUS O2 SATURATION 73.3 % (60.0-80.0); VENOUS PARTIAL PRESSURE CO2 70.1 mmHg (38.0-50.0); VENOUS PARTIAL PRESSURE O2 43.5 mmHg (30.0-50.0); VENOUS PH 7.351 UNITS (7.330-7.430); VENOUS STANDARD HCO3 33.5 MMOL/L; VENOUS TOTAL CO2 40.1 MMOL/L (24.0-28.0)
[2025-01-13 03:00] LABS: BASO # 0.1 10^3/uL (0.0-0.2); BASO % 0.3 % (0.0-1.0); EOS # 0.1 10^3/uL (0.0-0.5); EOS % 0.4 % (0.0-3.0); LYMPH # 0.4 10^3/uL (1.5-5.0); LYMPH % 2.7 % (24.0-44.0); MONO # 1.1 10^3/uL (0.0-0.8); MONO % 6.7 % (2.0-8.0); NEUTROPHILS # 14.3 10^3/uL (1.5-8.5); NEUTROPHILS % 88.4 % (36.0-66.0); PLATELET COUNT, AUTOMATED 377 10^3/uL (150-450)
[2025-01-13 04:32] LABS: ALT/SGPT 19 U/L (7.0-40); AST/SGOT 34 U/L (<34); CALCIUM LEVEL 8.1 MG/DL (8.3-10.6); CARBON DIOXIDE LEVEL 32 MMOL/L (20-31); CHLORIDE LEVEL 100 MMOL/L (98-107); CREATININE FOR GFR 0.35 MG/DL (0.55-1.30); GLOMERULAR FILTRATION RATE > 90.0 (>45); POTASSIUM SERUM 3.9 MMOL/L (3.5-5.1); SODIUM LEVEL 143 MMOL/L (136-145)
[2025-01-13] MEDS ORDERED: ISOVUE-370 76% 100 ML VIAL As Ordered ONE (04:40)
[2025-01-13] MEDS ORDERED: HOME MED LIST COMPLETE! XX SCH (08:20)
[2025-01-13] MEDS ORDERED: ALPR0.25 PO (08:20)
[2025-01-13] MEDS ORDERED: IPRA0.00 INH (08:20)
[2025-01-13] MEDS ORDERED: BISACODYL 10 MG SUPP PR PRN (12:05)
[2025-01-13] MEDS: D5W/0.9% SODIUM CHLORIDE 1,000 ML IV SCH (12:05)
[2025-01-13] MEDS ORDERED: LEVALBUTEROL 1.25 MG 0.5ML CONCENTRATE NEB NEB PRN (12:05)
[2025-01-13] MEDS ORDERED: ACETAMINOPHEN 325 MG TAB PO PRN (12:05)
[2025-01-13] MEDS ORDERED: ONDANSETRON 4MG/2ML VIAL IV PRN (12:05)
[2025-01-13 13:11] LABS: LDH LACTATE DEHYDROGENASE 646 U/L (120-246)
[2025-01-13] MEDS ORDERED: MIDAZOLAM INJ 2 MG/2 ML VIAL IV STA (13:39)
[2025-01-13] MEDS ORDERED: LIDOCAINE 1% MDV 20 ML VIAL SC STA (13:39)
[2025-01-13] MEDS ORDERED: FLUMAZENIL 0.5 MG/5 ML VIAL IV STA (13:39)
[2025-01-13 13:51] VITALS: BP 123/58; TEMP 99.3; O2SAT 92
[2025-01-13] MEDS: LEVALBUTEROL 1.25 MG 0.5ML CONCENTRATE NEB NEB SCH (14:25)
[2025-01-13] MEDS: LIDOCAINE 1% MDV 20 ML VIAL IM ONE (15:05)
[2025-01-13] MEDS: LIDOCAINE 1% MDV 20 ML VIAL SC SCH (15:06)
[2025-01-13] MEDS: KETOROLAC 30 MG/ML 1 ML VIAL IV SCH (15:25)
[2025-01-13 16:05] LABS: SOURCE, BODY FLUID PLEURAL
[2025-01-13 16:06] LABS: APPEARANCE, BODY FLUID TURBID (CLEAR); PLEURAL FL COLOR RED (COLORLESS)
[2025-01-13 16:24] LABS: PH BODY FLUID 7.726 UNITS (NOT ESTABLISHED); SOURCE, BODY FLUID pH PLEURAL
[2025-01-13 16:30] VITALS: BP 128/61; O2SAT 95
[2025-01-13] MEDS ORDERED: ALPRAZolam 0.25 MG TAB PO PRN (18:30)
[2025-01-13 19:18] VITALS: O2SAT 93
[2025-01-13 19:33] VITALS: BP 125/56; TEMP 99.1; O2SAT 93
[2025-01-13] MEDS: HEPARIN SOD 5000 UNITS/ML 1 ML VIAL/SYRINGE SC SCH (19:43)
[2025-01-13] MEDS: PERCOCET 5MG/325MG TAB PO PRN (19:44)
[2025-01-13] MEDS: DOCUSATE SODIUM 100 MG CAPSULE PO SCH (19:44)
[2025-01-13 19:50] VITALS: O2SAT 91
[2025-01-13 23:43] VITALS: BP 109/52; TEMP 98; O2SAT 96
[2025-01-14] VITALS (11 sets, daily range): BP systolic 103–126; BP diastolic 55–70; TEMP 97.8–98.6; O2SAT 93–96
[2025-01-14 05:20] LABS: BASO # 0.0 10^3/uL (0.0-0.2); BASO % 0.3 % (0.0-1.0); EOS # 0.2 10^3/uL (0.0-0.5); EOS % 1.3 % (0.0-3.0); LYMPH # 0.4 10^3/uL (1.5-5.0); LYMPH % 3.3 % (24.0-44.0); MONO # 0.9 10^3/uL (0.0-0.8); MONO % 7.3 % (2.0-8.0); NEUTROPHILS # 10.3 10^3/uL (1.5-8.5); NEUTROPHILS % 86.2 % (36.0-66.0)
[2025-01-14 05:34] LABS: CALCIUM LEVEL 7.9 MG/DL (8.3-10.6); CARBON DIOXIDE LEVEL 33 MMOL/L (20-31); CHLORIDE LEVEL 100 MMOL/L (98-107); CREATININE FOR GFR 0.38 MG/DL (0.55-1.30); GLOMERULAR FILTRATION RATE > 90.0 (>45); POTASSIUM SERUM 4.2 MMOL/L (3.5-5.1); SODIUM LEVEL 143 MMOL/L (136-145)
[2025-01-14 05:35] LABS: PLATELET COUNT, AUTOMATED 360 10^3/uL (150-450)
[2025-01-14] MEDS: MOM 30 ML SUSPENSION UDC PO SCH (08:35)
[2025-01-14] MEDS: OMEPRAZOLE 20MG CAP PO SCH (08:36)
[2025-01-14] MEDS: ATORVASTATIN 10 MG TAB PO SCH (08:36)
[2025-01-14] MEDS ORDERED: PANTOPRAZOLE 40MG TAB PO SCH (09:00)
[2025-01-14] MEDS: PERCOCET 5MG/325MG TAB PO PRN (10:52)
[2025-01-14] MEDS: METOPROLOL 5 MG/5 ML VIAL IV SCH (11:35)
[2025-01-14] MEDS: METOPROLOL TART 25 MG TABLET PO ONE (11:47)
[2025-01-14] MEDS: FLUZONE HIGH DOSE (65+) 0.5 ML SYRINGE (25-26) IM.IMMUN ONE (11:52)
[2025-01-14 16:17] LABS: PLATELET COUNT, AUTOMATED 366 10^3/uL (150-450)
[2025-01-14] MEDS: METOPROLOL TART 25 MG TABLET PO SCH (21:52)
[2025-01-15] VITALS: BP 113/60; TEMP 98.4; O2SAT 93
[2025-01-15 04:00] VITALS: BP 111/53; TEMP 98.2; O2SAT 95
[2025-01-15 05:27] VITALS: BP 111/53
[2025-01-15 05:44] LABS: BASO # 0.0 10^3/uL (0.0-0.2); BASO % 0.3 % (0.0-1.0); EOS # 0.1 10^3/uL (0.0-0.5); EOS % 1.1 % (0.0-3.0); LYMPH # 0.4 10^3/uL (1.5-5.0); LYMPH % 3.7 % (24.0-44.0); MONO # 0.6 10^3/uL (0.0-0.8); MONO % 6.0 % (2.0-8.0); NEUTROPHILS # 9.1 10^3/uL (1.5-8.5); NEUTROPHILS % 87.0 % (36.0-66.0); PLATELET COUNT, AUTOMATED 369 10^3/uL (150-450)
[2025-01-15 06:11] LABS: CALCIUM LEVEL 7.4 MG/DL (8.3-10.6); CARBON DIOXIDE LEVEL 35 MMOL/L (20-31); CHLORIDE LEVEL 94 MMOL/L (98-107); CREATININE FOR GFR 0.33 MG/DL (0.55-1.30); GLOMERULAR FILTRATION RATE > 90.0 (>45); MAGNESIUM LEVEL 1.7 MG/DL (1.8-2.4); POTASSIUM SERUM 3.9 MMOL/L (3.5-5.1); SODIUM LEVEL 136 MMOL/L (136-145)
[2025-01-15 07:42] VITALS: BP 100/57; TEMP 99.1; O2SAT 97
[2025-01-16] MEDS ORDERED: SENN-121 PO (17:07)
== END 2025-01-15 11:45 | disposition home or self-care (01) | DRG 180 ==
LOC: M ED 02:26 → M ED INP 12:02 → M PCU 13:51
PROVIDERS: ADMIT Family Medicine; ATTEND Family Medicine
PROC: 0W9930Z Drainage of Right Pleural Cavity with Drainage Device, Percutaneous Approach (ICD-10-PCS; principal; 2025-01-13 12:48)
PROC: B246ZZZ Ultrasonography of Right and Left Heart (ICD-10-PCS; 2025-01-14)
DX: C78.02 Secondary malignant neoplasm of left lung (principal); J96.01 Acute respiratory failure with hypoxia; J44.1 Chronic obstructive pulmonary disease with (acute) exacerbation; J98.11 Atelectasis; J91.0 Malignant pleural effusion; C79.89 Secondary malignant neoplasm of other specified sites; C78.01 Secondary malignant neoplasm of right lung; D64.9 Anemia, unspecified; D69.6 Thrombocytopenia, unspecified; D75.838 Other thrombocytosis; I10 Essential (primary) hypertension; K21.9 Gastro-esophageal reflux disease without esophagitis; M06.9 Rheumatoid arthritis, unspecified; J43.9 Emphysema, unspecified; R59.0 Localized enlarged lymph nodes; R91.8 Other nonspecific abnormal finding of lung field; I48.91 Unspecified atrial fibrillation; Z85.3 Personal history of malignant neoplasm of breast; Z90.12 Acquired absence of left breast and nipple

== ENCOUNTER 2025-01-16 14:09 | Inpatient (IN) | payer MEDICARE ==
[~2025-01-16] VITALS: Ht 170.2 cm; Wt 52.9 kg
[2025-01-16] VITALS (11 sets, daily range): BP systolic 105–117; BP diastolic 53–72; TEMP 98.8–102.1; O2SAT 90–100
[~2025-01-16 14:09] MED LIST changes: -DOCU8.6T PO; +IPRA0.00 INH; +SENN-208 PO
[2025-01-16 14:34] LABS: VENOUS BASE EXCESS 8.2 (-2.0-2.0); VENOUS HCO3 32.7 MMOL/L (23.0-27.0); VENOUS O2 SATURATION 80.4 % (60.0-80.0); VENOUS PARTIAL PRESSURE CO2 45.8 mmHg (38.0-50.0); VENOUS PARTIAL PRESSURE O2 45.8 mmHg (30.0-50.0); VENOUS PH 7.471 UNITS (7.330-7.430); VENOUS STANDARD HCO3 31.7 MMOL/L; VENOUS TOTAL CO2 34.1 MMOL/L (24.0-28.0)
[2025-01-16 14:45] LABS: BASO # 0.0 10^3/uL (0.0-0.2); BASO % 0.3 % (0.0-1.0); EOS # 0.1 10^3/uL (0.0-0.5); EOS % 0.9 % (0.0-3.0); LYMPH # 0.4 10^3/uL (1.5-5.0); LYMPH % 3.7 % (24.0-44.0); MONO # 0.9 10^3/uL (0.0-0.8); MONO % 7.9 % (2.0-8.0); NEUTROPHILS # 9.7 10^3/uL (1.5-8.5); NEUTROPHILS % 84.9 % (36.0-66.0); PLATELET COUNT, AUTOMATED 457 10^3/uL (150-450)
[2025-01-16] MEDS: NS (Normal Saline) 0.9% 1,000 ML IV SCH ×2 (14:46→19:00)
[2025-01-16 15:17] LABS: ALT/SGPT 9 U/L (7.0-40); AST/SGOT 21 U/L (<34); CALCIUM LEVEL 8.0 MG/DL (8.3-10.6); CARBON DIOXIDE LEVEL 32 MMOL/L (20-31); CHLORIDE LEVEL 95 MMOL/L (98-107); CREATININE FOR GFR 0.47 MG/DL (0.55-1.30); GLOMERULAR FILTRATION RATE > 90.0 (>45); POTASSIUM SERUM 3.7 MMOL/L (3.5-5.1); SODIUM LEVEL 139 MMOL/L (136-145)
[2025-01-16 15:21] LABS: INR 1.03
[2025-01-16] MEDS: CEFEPIME HCL 1 GM in DEXTROSE 5% (D5W) ADV/MINI-BAG 50 ML IV ONE (15:55)
[2025-01-16 15:57] LABS: KETONE, URINE AUTO RFX TRACE mg/dL (NEGATIVE); LEUKOCYTE ESTERASE UR AUTO RFX NEGATIVE (NEGATIVE); MUCUS, URINE RFX SMALL (NEGATIVE); NITRITE, URINE AUTO RFX NEGATIVE (NEGATIVE); RBC, URINE AUTO RFX 0 /HPF (0-3); SQUAM EPITHELIAL CELL UR AURFX 1 /HPF (0-6); WBC, URINE AUTO RFX 6 /HPF (0-3)
[2025-01-16 15:58] LABS: C REACTIVE PROTEIN QUANTITATIV 15.43 MG/DL (<1.0)
[2025-01-16] MEDS ORDERED: MAALOX 30 ML SUSP *UDC PO PRN (17:05)
[2025-01-16] MEDS ORDERED: VANCOMYCIN HCL 1,000 MG in IV FLUID PLACE HOLDER 1 EA IV SCH (17:05)
[2025-01-16] MEDS ORDERED: SENN-121 PO (17:07)
[2025-01-16] MEDS ORDERED: HOME MED LIST COMPLETE! XX SCH (17:10)
[2025-01-16] MEDS ORDERED: ISOVUE-370 76% 100 ML VIAL As Ordered ONE (17:49)
[2025-01-16 18:06] LABS: CORTISOL PM 27.9 UG/DL (3.1-16.7)
[2025-01-16] MEDS: NS (Normal Saline) 0.9% 1,910 ML in IV 1 EA IV ONE (18:32)
[2025-01-16] MEDS: HYDROCORTISONE 100 MG/2 ML VIAL IV ONE (20:06)
[2025-01-16] MEDS: VANCOMYCIN HCL 1,250 MG, VIAL MATE ADAPTER 1 EACH in NS 250 ML IV ONE (20:35)
[2025-01-16] MEDS: ACETAMINOPHEN 325 MG TAB PO PRN (20:38)
[2025-01-16] MEDS: DOCUSATE SODIUM 100 MG CAPSULE PO SCH (21:00)
[2025-01-16] MEDS: PIPERACILLIN/TAZOBACTAM SOD 3.375 GM in DEXTROSE 5% (D5W) ADV/MINI-BAG 50 ML IV SCH (23:04)
[2025-01-17] VITALS (20 sets, daily range): BP systolic 111–130; BP diastolic 58–68; TEMP 97.1–98.8; O2SAT 86–94
[2025-01-17] MEDS: HYDROCORTISONE 100 MG/2 ML VIAL IV SCH (00:26)
[2025-01-17 06:00] LABS: BASO # 0.0 10^3/uL (0.0-0.2); BASO % 0.3 % (0.0-1.0); EOS # 0.0 10^3/uL (0.0-0.5); EOS % 0.0 % (0.0-3.0); LYMPH # 0.3 10^3/uL (1.5-5.0); LYMPH % 2.5 % (24.0-44.0); MONO # 0.3 10^3/uL (0.0-0.8); MONO % 2.9 % (2.0-8.0); NEUTROPHILS # 10.4 10^3/uL (1.5-8.5); NEUTROPHILS % 91.5 % (36.0-66.0); PLATELET COUNT, AUTOMATED 412 10^3/uL (150-450)
[2025-01-17] MEDS: VANCOMYCIN HCL 1,000 MG, VIAL MATE ADAPTER 1 EACH in NS 250 ML IV SCH (06:05)
[2025-01-17 06:47] LABS: ALT/SGPT < 9 U/L (7.0-40); AST/SGOT 24 U/L (<34); C REACTIVE PROTEIN QUANTITATIV 12.95 MG/DL (<1.0); CALCIUM LEVEL 7.8 MG/DL (8.3-10.6); CARBON DIOXIDE LEVEL 32 MMOL/L (20-31); CHLORIDE LEVEL 102 MMOL/L (98-107); CREATININE FOR GFR 0.35 MG/DL (0.55-1.30); GLOMERULAR FILTRATION RATE > 90.0 (>45); MAGNESIUM LEVEL 1.7 MG/DL (1.8-2.4); POTASSIUM SERUM 4.0 MMOL/L (3.5-5.1); SODIUM LEVEL 144 MMOL/L (136-145)
[2025-01-17] MEDS: ENOXAPARIN 40 MG/0.4 ML SYRINGE (J1650 PER 10MG) SC SCH (08:26)
[2025-01-17] MEDS: MAG SULF 1GM/100ML (MAG RUN) 1 GM in IV 1 EA IV SCH (08:26)
[2025-01-17] MEDS: OMEPRAZOLE 20MG CAP PO SCH (08:26)
[2025-01-17] MEDS: SODIUM CHLORIDE 0.9% INJ 10 ML SYR IV SCH (08:27)
[2025-01-17] MEDS: HEPARIN LOCK FLUSH 100 UNITS/ML 3 ML SYRINGE IV SCH (08:27)
[2025-01-17] MEDS: ADVAIR HFA 230/21 MCG INHALER INH SCH (09:11)
[2025-01-18] VITALS (16 sets, daily range): BP systolic 112–127; BP diastolic 58–68; TEMP 97.4–98.5; O2SAT 88–99
[2025-01-18 05:37] LABS: BASO # 0.0 10^3/uL (0.0-0.2); BASO % 0.2 % (0.0-1.0); EOS # 0.0 10^3/uL (0.0-0.5); EOS % 0.0 % (0.0-3.0); LYMPH # 0.4 10^3/uL (1.5-5.0); LYMPH % 2.7 % (24.0-44.0); MONO # 0.9 10^3/uL (0.0-0.8); MONO % 6.4 % (2.0-8.0); NEUTROPHILS # 12.8 10^3/uL (1.5-8.5); NEUTROPHILS % 89.1 % (36.0-66.0); PLATELET COUNT, AUTOMATED 486 10^3/uL (150-450)
[2025-01-18 06:02] LABS: C REACTIVE PROTEIN QUANTITATIV 6.17 MG/DL (<1.0)
[2025-01-18 06:09] LABS: ALT/SGPT < 9 U/L (7.0-40); AST/SGOT 20 U/L (<34); CALCIUM LEVEL 8.0 MG/DL (8.3-10.6); CARBON DIOXIDE LEVEL 30 MMOL/L (20-31); CHLORIDE LEVEL 102 MMOL/L (98-107); CREATININE FOR GFR 0.36 MG/DL (0.55-1.30); GLOMERULAR FILTRATION RATE > 90.0 (>45); MAGNESIUM LEVEL 2.0 MG/DL (1.8-2.4); POTASSIUM SERUM 3.7 MMOL/L (3.5-5.1); SODIUM LEVEL 143 MMOL/L (136-145)
[2025-01-18] MEDS ORDERED: diphenhydrAMINE 50 MG/ML VIAL IV STA (08:20)
[2025-01-18] MEDS ORDERED: ALBUTEROL SULFATE 2.5 MG/0.5 ML INH CONCENTRATE NEB SOLN INH STA (08:20)
[2025-01-18] MEDS ORDERED: FAMOTIDINE 20 MG/2 ML VIAL IV STA (08:20)
[2025-01-18] MEDS ORDERED: NS (Normal Saline) 0.9% 1,000 ML IV STA (08:20)
[2025-01-18] MEDS ORDERED: EPINEPHrine INJ 1 MG/ML 1ML AMP IM STA (08:20)
[2025-01-18] MEDS ORDERED: FAMOTIDINE 20 MG/2 ML VIAL IV PRN (09:00)
[2025-01-18] MEDS ORDERED: EPINEPHrine INJ 1 MG/ML 1ML AMP IM PRN (09:00)
[2025-01-18] MEDS ORDERED: diphenhydrAMINE 50 MG/ML VIAL IV PRN (09:00)
[2025-01-18] MEDS ORDERED: NS (Normal Saline) 0.9% 1,000 ML IV PRN (09:00)
[2025-01-18] MEDS ORDERED: ALBUTEROL SULFATE 2.5 MG/0.5 ML INH CONCENTRATE NEB SOLN INH PRN (09:30)
[2025-01-18] MEDS: FOSAPREPITANT PERIPHERAL LINE 30 MIN INFUSION IV ONE (10:31)
[2025-01-18] MEDS: dexameTHASONE 20 MG IV IV ONE (10:35)
[2025-01-18] MEDS: diphenhydrAMINE 25 MG IV IV ONE (10:35)
[2025-01-18] MEDS: FAMOTIDINE 20 MG IVP IV ONE (10:35)
[2025-01-18] MEDS: PALONOSETRON 250 MCG IV IV ONE (10:36)
[2025-01-18] MEDS ORDERED: ONDA-84 PO (10:54)
[2025-01-18] MEDS: NS (Normal Saline) 0.9% 1,000 ML IV SCH (16:00)
[2025-01-19] VITALS (31 sets, daily range): BP systolic 100–120; BP diastolic 51–64; TEMP 96.6–97.4; O2SAT 92–98
[2025-01-19 05:29] LABS: BASO # 0.0 10^3/uL (0.0-0.2); BASO % 0.2 % (0.0-1.0); EOS # 0.0 10^3/uL (0.0-0.5); EOS % 0.0 % (0.0-3.0); LYMPH # 0.2 10^3/uL (1.5-5.0); LYMPH % 1.9 % (24.0-44.0); MONO # 0.5 10^3/uL (0.0-0.8); MONO % 4.0 % (2.0-8.0); NEUTROPHILS # 12.0 10^3/uL (1.5-8.5); NEUTROPHILS % 92.7 % (36.0-66.0); PLATELET COUNT, AUTOMATED 483 10^3/uL (150-450)
[2025-01-19 05:52] LABS: C REACTIVE PROTEIN QUANTITATIV 4.15 MG/DL (<1.0)
[2025-01-19 05:54] LABS: ALT/SGPT 10 U/L (7.0-40); AST/SGOT 23 U/L (<34); CALCIUM LEVEL 7.1 MG/DL (8.3-10.6); CARBON DIOXIDE LEVEL 33 MMOL/L (20-31); CHLORIDE LEVEL 102 MMOL/L (98-107); CREATININE FOR GFR 0.33 MG/DL (0.55-1.30); GLOMERULAR FILTRATION RATE > 90.0 (>45); MAGNESIUM LEVEL 1.9 MG/DL (1.8-2.4); PHOSPHORUS LEVEL 3.3 MG/DL (2.4-5.1); POTASSIUM SERUM 4.0 MMOL/L (3.5-5.1); SODIUM LEVEL 143 MMOL/L (136-145)
[2025-01-19] MEDS: HEPARIN LOCK FLUSH 100 UNITS/ML 3 ML SYRINGE IV PRN (12:14)
[2025-01-19] MEDS: SODIUM CHLORIDE 0.9% INJ 10 ML SYR IV PRN (12:15)
[2025-01-20] VITALS (32 sets, daily range): BP systolic 100–116; BP diastolic 52–59; TEMP 97.1–99.5; O2SAT 92–99
[2025-01-20 06:02] LABS: BASO # 0.1 10^3/uL (0.0-0.2); BASO % 0.2 % (0.0-1.0); EOS # 0.1 10^3/uL (0.0-0.5); EOS % 0.2 % (0.0-3.0); LYMPH # 0.2 10^3/uL (1.5-5.0); LYMPH % 0.7 % (24.0-44.0); MONO # 0.5 10^3/uL (0.0-0.8); MONO % 1.8 % (2.0-8.0); NEUTROPHILS # 26.8 10^3/uL (1.5-8.5); NEUTROPHILS % 95.5 % (36.0-66.0); PLATELET COUNT, AUTOMATED 431 10^3/uL (150-450)
[2025-01-20 06:28] LABS: ALT/SGPT 11 U/L (7.0-40); AST/SGOT 32 U/L (<34); C REACTIVE PROTEIN QUANTITATIV 4.62 MG/DL (<1.0); CALCIUM LEVEL 7.3 MG/DL (8.3-10.6); CARBON DIOXIDE LEVEL 35 MMOL/L (20-31); CHLORIDE LEVEL 101 MMOL/L (98-107); CREATININE FOR GFR 0.31 MG/DL (0.55-1.30); GLOMERULAR FILTRATION RATE > 90.0 (>45); MAGNESIUM LEVEL 1.9 MG/DL (1.8-2.4); PHOSPHORUS LEVEL 3.0 MG/DL (2.4-5.1); POTASSIUM SERUM 3.6 MMOL/L (3.5-5.1); SODIUM LEVEL 142 MMOL/L (136-145)
[2025-01-21] VITALS (28 sets, daily range): BP systolic 100–126; BP diastolic 54–62; TEMP 97–98.3; O2SAT 88–100
[2025-01-21 06:06] LABS: PLATELET COUNT, AUTOMATED 407 10^3/uL (150-450)
[2025-01-21 06:29] LABS: C REACTIVE PROTEIN QUANTITATIV 8.23 MG/DL (<1.0)
[2025-01-21 06:30] LABS: ALT/SGPT < 9 U/L (7.0-40); AST/SGOT 22 U/L (<34); CALCIUM LEVEL 7.5 MG/DL (8.3-10.6); CARBON DIOXIDE LEVEL 36 MMOL/L (20-31); CHLORIDE LEVEL 100 MMOL/L (98-107); CREATININE FOR GFR 0.24 MG/DL (0.55-1.30); GLOMERULAR FILTRATION RATE > 90.0 (>45); MAGNESIUM LEVEL 1.8 MG/DL (1.8-2.4); PHOSPHORUS LEVEL 2.9 MG/DL (2.4-5.1); POTASSIUM SERUM 4.0 MMOL/L (3.5-5.1); SODIUM LEVEL 142 MMOL/L (136-145)
[2025-01-21 06:40] LABS: LYMPHOCYTES 1 % (16-44); METAMYELOCYTES 1 % (0-0); MONOCYTES 1 % (0-5); NEUTROPHILS 95 % (28-66)
[2025-01-21 06:41] LABS: PLATELET ESTIMATE NORMAL (NORMAL)
[2025-01-21] MEDS: NS (Normal Saline) 0.9% 1,000 ML IV SCH (17:13)
[2025-01-22] VITALS (32 sets, daily range): BP systolic 107–130; BP diastolic 51–64; TEMP 96.7–98.6; O2SAT 87–99
[2025-01-22 06:01] LABS: BASO # 0.1 10^3/uL (0.0-0.2); BASO % 0.6 % (0.0-1.0); EOS # 0.3 10^3/uL (0.0-0.5); EOS % 1.4 % (0.0-3.0); LYMPH # 0.3 10^3/uL (1.5-5.0); LYMPH % 1.3 % (24.0-44.0); MONO # 0.3 10^3/uL (0.0-0.8); MONO % 1.2 % (2.0-8.0); NEUTROPHILS # 16.1 10^3/uL (1.5-8.5); NEUTROPHILS % 74.9 % (36.0-66.0); PLATELET COUNT, AUTOMATED 406 10^3/uL (150-450)
[2025-01-22 06:25] LABS: ALT/SGPT < 9 U/L (7.0-40); AST/SGOT 20 U/L (<34); CALCIUM LEVEL 7.9 MG/DL (8.3-10.6); CARBON DIOXIDE LEVEL 35 MMOL/L (20-31); CHLORIDE LEVEL 99 MMOL/L (98-107); CREATININE FOR GFR 0.26 MG/DL (0.55-1.30); GLOMERULAR FILTRATION RATE > 90.0 (>45); MAGNESIUM LEVEL 1.7 MG/DL (1.8-2.4); POTASSIUM SERUM 4.3 MMOL/L (3.5-5.1); SODIUM LEVEL 142 MMOL/L (136-145)
[2025-01-22 07:03] LABS: C REACTIVE PROTEIN QUANTITATIV 11.63 MG/DL (<1.0)
[2025-01-22] MEDS: ALPRAZolam 0.25 MG TAB PO PRN (08:31)
[2025-01-22] MEDS: MAG SULF 1GM/100ML (MAG RUN) 1 GM in IV 1 EA IV SCH (12:52)
[2025-01-23] VITALS (30 sets, daily range): BP systolic 106–160; BP diastolic 51–70; TEMP 97.1–98.4; O2SAT 85–97
[2025-01-23 05:03] LABS: PLATELET COUNT, AUTOMATED 381 10^3/uL (150-450)
[2025-01-23 05:19] LABS: ALT/SGPT < 9 U/L (7.0-40); AST/SGOT 20 U/L (<34); CALCIUM LEVEL 7.6 MG/DL (8.3-10.6); CARBON DIOXIDE LEVEL 36 MMOL/L (20-31); CHLORIDE LEVEL 97 MMOL/L (98-107); CREATININE FOR GFR 0.26 MG/DL (0.55-1.30); GLOMERULAR FILTRATION RATE > 90.0 (>45); MAGNESIUM LEVEL 1.9 MG/DL (1.8-2.4); POTASSIUM SERUM 4.4 MMOL/L (3.5-5.1); SODIUM LEVEL 139 MMOL/L (136-145)
[2025-01-23 05:30] LABS: BASOPHILS 1 % (0-1); EOSINOPHILS 3 % (0-3); LYMPHOCYTES 1 % (16-44); MONOCYTES 4 % (0-5); NEUTROPHILS 91 % (28-66); PLATELET ESTIMATE NORMAL (NORMAL)
[2025-01-23 05:41] LABS: C REACTIVE PROTEIN QUANTITATIV 12.84 MG/DL (<1.0)
[2025-01-23] MEDS: IPRATROPIUM 0.5 MG/ALBUTEROL 2.5 MG INH SOL UD 3 ML INH PRN (08:46)
[2025-01-23] MEDS ORDERED: PILL CUTTER 1 EACH XX PRN (09:00)
[2025-01-23] MEDS: METOPROLOL TART 12.5 MG PER 1/2 TAB PO SCH (09:22)
[2025-01-24] VITALS (32 sets, daily range): BP systolic 112–131; BP diastolic 58–88; TEMP 97.2–98.7; O2SAT 84–96
[2025-01-24 09:18] LABS: PLATELET COUNT, AUTOMATED 372 10^3/uL (150-450)
[2025-01-24 09:36] LABS: CALCIUM LEVEL 7.6 MG/DL (8.3-10.6); CARBON DIOXIDE LEVEL 37 MMOL/L (20-31); CHLORIDE LEVEL 95 MMOL/L (98-107); CREATININE FOR GFR 0.23 MG/DL (0.55-1.30); GLOMERULAR FILTRATION RATE > 90.0 (>45); POTASSIUM SERUM 4.2 MMOL/L (3.5-5.1); SODIUM LEVEL 138 MMOL/L (136-145)
[2025-01-24] MEDS: FUROSEMIDE 40 MG/4 ML VIAL IV ONE (15:31)
[2025-01-25] VITALS (32 sets, daily range): BP systolic 117–138; BP diastolic 58–68; TEMP 97.1–98.9; O2SAT 86–96
[2025-01-25 05:45] LABS: PLATELET COUNT, AUTOMATED 350 10^3/uL (150-450)
[2025-01-25 06:17] LABS: CALCIUM LEVEL 8.0 MG/DL (8.3-10.6); CARBON DIOXIDE LEVEL 37 MMOL/L (20-31); CHLORIDE LEVEL 94 MMOL/L (98-107); CREATININE FOR GFR 0.29 MG/DL (0.55-1.30); GLOMERULAR FILTRATION RATE > 90.0 (>45); MAGNESIUM LEVEL 1.6 MG/DL (1.8-2.4); POTASSIUM SERUM 4.3 MMOL/L (3.5-5.1); SODIUM LEVEL 139 MMOL/L (136-145)
[2025-01-25] MEDS: MAG SULF 1GM/100ML (MAG RUN) 1 GM in IV 1 EA IV ONE ×2 (06:49→09:00)
[2025-01-25] MEDS ORDERED: FUROSEMIDE 40 MG/4 ML VIAL IV SCH (09:00)
[2025-01-25] MEDS: FUROSEMIDE 40 MG/4 ML VIAL IV SCH (10:06)
[2025-01-25] MEDS: LORazepam 0.5 MG TAB PO SCH (20:10)
[2025-01-26] VITALS (71 sets, daily range): BP systolic 92–128; BP diastolic 51–61; TEMP 97–98.9; O2SAT 86–98
[2025-01-26] MEDS ORDERED: MAGNESIUM OXIDE 400 MG TAB PO ONE (05:45)
[2025-01-26 06:18] LABS: PLATELET COUNT, AUTOMATED 344 10^3/uL (150-450)
[2025-01-26 06:42] LABS: CALCIUM LEVEL 7.7 MG/DL (8.3-10.6); CARBON DIOXIDE LEVEL 39 MMOL/L (20-31); CHLORIDE LEVEL 89 MMOL/L (98-107); CREATININE FOR GFR 0.32 MG/DL (0.55-1.30); GLOMERULAR FILTRATION RATE > 90.0 (>45); MAGNESIUM LEVEL 1.7 MG/DL (1.8-2.4); POTASSIUM SERUM 3.9 MMOL/L (3.5-5.1); SODIUM LEVEL 135 MMOL/L (136-145)
[2025-01-26] MEDS: MAG SULF 1GM/100ML (MAG RUN) 1 GM in IV 1 EA IV SCH (08:25)
[2025-01-26] MEDS: ceFAZolin SODIUM 2 GM in DEXTROSE 5% (D5W) ADV/MINI-BAG 50 ML IV STA (16:34)
[2025-01-26] MEDS: MIDAZOLAM INJ 2 MG/2 ML VIAL IV STA (17:00)
[2025-01-26] MEDS: LIDOCAINE 1% MDV 20 ML VIAL SC STA (17:00)
[2025-01-26] MEDS: MIDAZOLAM INJ 2 MG/2 ML VIAL IV ONE (17:30)
[2025-01-26] MEDS: LIDOCAINE 1% MDV 20 ML VIAL SC ONE (17:30)
[2025-01-26] MEDS: FLUMAZENIL 0.5 MG/5 ML VIAL IV STA (17:54)
[2025-01-26] MEDS ORDERED: ONDANSETRON 4MG/2ML VIAL IV PRN (18:05)
[2025-01-26] MEDS ORDERED: LEVALBUTEROL 1.25 MG 0.5ML CONCENTRATE NEB NEB PRN (18:05)
[2025-01-26] MEDS ORDERED: BISACODYL 10 MG SUPP PR PRN (18:05)
[2025-01-26] MEDS: LEVALBUTEROL 1.25 MG 0.5ML CONCENTRATE NEB NEB SCH (19:24)
[2025-01-26 19:56] LABS: LDH LACTATE DEHYDROGENASE 620 U/L (120-246)
[2025-01-26] MEDS: LORazepam 1 MG TAB PO SCH (20:06)
[2025-01-26] MEDS: KETOROLAC 30 MG/ML 1 ML VIAL IV SCH (20:08)
[2025-01-27] VITALS (37 sets, daily range): BP systolic 102–124; BP diastolic 55–60; TEMP 97.5–98.8; O2SAT 83–95
[2025-01-27 06:01] LABS: PLATELET COUNT, AUTOMATED 328 10^3/uL (150-450)
[2025-01-27 06:12] LABS: CALCIUM LEVEL 7.5 MG/DL (8.3-10.6); CARBON DIOXIDE LEVEL 38 MMOL/L (20-31); CHLORIDE LEVEL 87 MMOL/L (98-107); CREATININE FOR GFR 0.33 MG/DL (0.55-1.30); GLOMERULAR FILTRATION RATE > 90.0 (>45); MAGNESIUM LEVEL 2.0 MG/DL (1.8-2.4); POTASSIUM SERUM 3.9 MMOL/L (3.5-5.1); SODIUM LEVEL 134 MMOL/L (136-145)
[2025-01-27] MEDS: PANTOPRAZOLE 40MG TAB PO SCH (08:16)
[2025-01-28] VITALS (40 sets, daily range): BP systolic 104–117; BP diastolic 51–58; TEMP 97.2–99.5; O2SAT 84–94
[2025-01-28 05:48] LABS: PLATELET COUNT, AUTOMATED 327 10^3/uL (150-450)
[2025-01-28 06:13] LABS: CALCIUM LEVEL 7.6 MG/DL (8.3-10.6); CARBON DIOXIDE LEVEL 39 MMOL/L (20-31); CHLORIDE LEVEL 89 MMOL/L (98-107); CREATININE FOR GFR 0.33 MG/DL (0.55-1.30); GLOMERULAR FILTRATION RATE > 90.0 (>45); MAGNESIUM LEVEL 1.8 MG/DL (1.8-2.4); POTASSIUM SERUM 3.7 MMOL/L (3.5-5.1); SODIUM LEVEL 135 MMOL/L (136-145)
[2025-01-28] MEDS: FUROSEMIDE 40 MG/4 ML VIAL IV SCH (08:45)
[2025-01-28] MEDS: PERCOCET 5MG/325MG TAB PO PRN (09:33)
[2025-01-28] MEDS: POTASSIUM CHLORIDE 10MEQ SR TABLET PO ONE (11:38)
[2025-01-28] MEDS: MAG SULF 1GM/100ML (MAG RUN) 1 GM in IV 1 EA IV ONE (11:38)
[2025-01-29] VITALS (34 sets, daily range): BP systolic 97–124; BP diastolic 53–63; TEMP 97.8–99.3; O2SAT 88–94
[2025-01-29 05:42] LABS: PLATELET COUNT, AUTOMATED 320 10^3/uL (150-450)
[2025-01-29 06:06] LABS: CALCIUM LEVEL 7.4 MG/DL (8.3-10.6); CARBON DIOXIDE LEVEL 36 MMOL/L (20-31); CHLORIDE LEVEL 92 MMOL/L (98-107); CREATININE FOR GFR 0.32 MG/DL (0.55-1.30); GLOMERULAR FILTRATION RATE > 90.0 (>45); MAGNESIUM LEVEL 1.8 MG/DL (1.8-2.4); POTASSIUM SERUM 4.3 MMOL/L (3.5-5.1); SODIUM LEVEL 135 MMOL/L (136-145)
[2025-01-29 07:34] LABS: ALT/SGPT < 9 U/L (7.0-40); AST/SGOT 21 U/L (<34)
[2025-01-29] MEDS: MAG SULF 1GM/100ML (MAG RUN) 1 GM in IV 1 EA IV ONE (08:38)
[2025-01-29] MEDS: FERROUS GLUCONATE 324 MG TAB PO SCH (10:46)
[2025-01-30] VITALS (27 sets, daily range): BP systolic 102–117; BP diastolic 51–59; TEMP 97–98.9; O2SAT 32–98
[2025-01-30 06:12] LABS: PLATELET COUNT, AUTOMATED 375 10^3/uL (150-450)
[2025-01-30 06:25] LABS: CALCIUM LEVEL 7.8 MG/DL (8.3-10.6); CARBON DIOXIDE LEVEL 36 MMOL/L (20-31); CHLORIDE LEVEL 90 MMOL/L (98-107); CREATININE FOR GFR 0.28 MG/DL (0.55-1.30); GLOMERULAR FILTRATION RATE > 90.0 (>45); MAGNESIUM LEVEL 1.9 MG/DL (1.8-2.4); POTASSIUM SERUM 3.8 MMOL/L (3.5-5.1); SODIUM LEVEL 133 MMOL/L (136-145)
[2025-01-30] MEDS: FUROSEMIDE 40 MG TAB PO SCH (08:19)
[2025-01-31] VITALS (27 sets, daily range): BP systolic 99–112; BP diastolic 52–58; TEMP 97.2–98.9; O2SAT 87–96
[2025-01-31 05:49] LABS: PLATELET COUNT, AUTOMATED 413 10^3/uL (150-450)
[2025-01-31 06:04] LABS: CALCIUM LEVEL 7.3 MG/DL (8.3-10.6); CARBON DIOXIDE LEVEL 37 MMOL/L (20-31); CHLORIDE LEVEL 93 MMOL/L (98-107); CREATININE FOR GFR 0.26 MG/DL (0.55-1.30); GLOMERULAR FILTRATION RATE > 90.0 (>45); MAGNESIUM LEVEL 1.6 MG/DL (1.8-2.4); POTASSIUM SERUM 3.7 MMOL/L (3.5-5.1); SODIUM LEVEL 137 MMOL/L (136-145)
[2025-01-31] MEDS: MAG SULF 1GM/100ML (MAG RUN) 1 GM in IV 1 EA IV ONE (09:08)
[2025-02-01] VITALS (30 sets, daily range): BP systolic 106–130; BP diastolic 53–59; TEMP 98.2–99.4; O2SAT 89–99
[2025-02-01 06:17] LABS: PLATELET COUNT, AUTOMATED 547 10^3/uL (150-450)
[2025-02-01 06:44] LABS: ALT/SGPT < 9 U/L (7.0-40); AST/SGOT 21 U/L (<34); CALCIUM LEVEL 7.6 MG/DL (8.3-10.6); CARBON DIOXIDE LEVEL 37 MMOL/L (20-31); CHLORIDE LEVEL 92 MMOL/L (98-107); CREATININE FOR GFR 0.25 MG/DL (0.55-1.30); GLOMERULAR FILTRATION RATE > 90.0 (>45); LYMPHOCYTES 3 % (16-44); MAGNESIUM LEVEL 1.7 MG/DL (1.8-2.4); METAMYELOCYTES 2 % (0-0); MONOCYTES 3 % (0-5); MYELOCYTES 6 % (0-0); NEUTROPHILS 80 % (28-66); PLATELET ESTIMATE INCREASED (NORMAL); POTASSIUM SERUM 3.9 MMOL/L (3.5-5.1); SODIUM LEVEL 136 MMOL/L (136-145)
[2025-02-02] VITALS (32 sets, daily range): BP systolic 97–123; BP diastolic 55–59; TEMP 97.5–99.5; O2SAT 90–100
[2025-02-02 07:13] LABS: BASO # 0.1 10^3/uL (0.0-0.2); BASO % 0.6 % (0.0-1.0); EOS # 0.1 10^3/uL (0.0-0.5); EOS % 0.4 % (0.0-3.0); LYMPH # 0.6 10^3/uL (1.5-5.0); LYMPH % 4.2 % (24.0-44.0); MONO # 1.4 10^3/uL (0.0-0.8); MONO % 9.8 % (2.0-8.0); NEUTROPHILS # 10.9 10^3/uL (1.5-8.5); NEUTROPHILS % 77.1 % (36.0-66.0); PLATELET COUNT, AUTOMATED 590 10^3/uL (150-450)
[2025-02-02 07:32] LABS: ALT/SGPT < 9 U/L (7.0-40); AST/SGOT 23 U/L (<34); CALCIUM LEVEL 7.2 MG/DL (8.3-10.6); CARBON DIOXIDE LEVEL 37 MMOL/L (20-31); CHLORIDE LEVEL 93 MMOL/L (98-107); CREATININE FOR GFR 0.27 MG/DL (0.55-1.30); GLOMERULAR FILTRATION RATE > 90.0 (>45); MAGNESIUM LEVEL 1.7 MG/DL (1.8-2.4); POTASSIUM SERUM 3.9 MMOL/L (3.5-5.1); SODIUM LEVEL 137 MMOL/L (136-145)
[2025-02-03] VITALS (20 sets, daily range): BP systolic 103–119; BP diastolic 55–61; TEMP 97–98.8; O2SAT 89–98
[2025-02-03 06:38] LABS: BASO # 0.1 10^3/uL (0.0-0.2); BASO % 0.7 % (0.0-1.0); EOS # 0.1 10^3/uL (0.0-0.5); EOS % 0.6 % (0.0-3.0); LYMPH # 0.6 10^3/uL (1.5-5.0); LYMPH % 3.9 % (24.0-44.0); MONO # 1.5 10^3/uL (0.0-0.8); MONO % 8.8 % (2.0-8.0); NEUTROPHILS # 12.5 10^3/uL (1.5-8.5); NEUTROPHILS % 75.8 % (36.0-66.0); PLATELET COUNT, AUTOMATED 615 10^3/uL (150-450)
[2025-02-03 07:01] LABS: ALT/SGPT < 9 U/L (7.0-40); AST/SGOT 21 U/L (<34); CALCIUM LEVEL 7.7 MG/DL (8.3-10.6); CARBON DIOXIDE LEVEL 36 MMOL/L (20-31); CHLORIDE LEVEL 92 MMOL/L (98-107); CREATININE FOR GFR 0.23 MG/DL (0.55-1.30); GLOMERULAR FILTRATION RATE > 90.0 (>45); MAGNESIUM LEVEL 1.7 MG/DL (1.8-2.4); POTASSIUM SERUM 3.8 MMOL/L (3.5-5.1); SODIUM LEVEL 135 MMOL/L (136-145)
[2025-02-03] MEDS: oxyCODONE 10 MG CR TAB PO SCH (09:00)
[2025-02-03] MEDS: MOM 30 ML SUSPENSION UDC PO PRN (09:11)
[2025-02-03] MEDS ORDERED: HYOSCYAMINE SULFATE 0.125 MG SUBL TABLET SL PRN (13:10)
[2025-02-03] MEDS ORDERED: ONDANSETRON 4MG ORAL DISINTEGRATING TAB PO PRN (13:10)
[2025-02-03] MEDS ORDERED: ATROPINE SULFATE 1% OPHTH SOLN 2 ML BTL SL PRN (13:10)
[2025-02-03] MEDS ORDERED: SENNA 8.6 MG TAB PO PRN (13:10)
[2025-02-03] MEDS ORDERED: SALIVA SUBSTITUTE BTL MT PRN (13:10)
[2025-02-03] MEDS ORDERED: MIRALAX *UNIT DOSE* 17 GM PACKET PO PRN (13:10)
[2025-02-03] MEDS ORDERED: POLYVINYL ALCOHOL OPHTH SOLN 15ML (LIQUITEARS) OU PRN (13:10)
[2025-02-03] MEDS: LORazepam 0.5 MG TAB PO SCH (14:49)
[2025-02-03] MEDS: LORazepam 1 MG TAB PO PRN (18:09)
[2025-02-06] MEDS: oxyCODONE 10 MG CR TAB PO ONE (09:06)
[2025-02-06] MEDS: MORPHINE 10 MG/0.5 ML ORAL CONCENTRATE SOLUTION U/D SL PRN (18:06)
[2025-02-06] MEDS: oxyCODONE 20MG CR TAB PO SCH (20:59)
[2025-02-07] MEDS ORDERED: ONDA-84 PO (07:34)
[2025-02-07] MEDS ORDERED: ACET32TAB PO (07:34)
[2025-02-07] MEDS ORDERED: OXYC20TA40 PO (08:17)
[2025-02-07] MEDS ORDERED: ATIV1TAB10 PO (08:17)
[2025-02-07] MEDS ORDERED: HYOS125TA SL (08:17)
[2025-02-07] MEDS ORDERED: ATIV1TAB7 PO (08:17)
== END 2025-02-07 10:04 | disposition hospice, home (50) | DRG 180 ==
LOC: M ED 14:09 → M ED INP 17:01 → M PCU 20:19 → M MS5PR 02-03 14:07
PROVIDERS: ADMIT Internal Medicine; ATTEND Internal Medicine
PROC: 30233N1 Transfusion of Nonautologous Red Blood Cells into Peripheral Vein, Percutaneous Approach (ICD-10-PCS; 2025-01-16)
PROC: 0W9930Z Drainage of Right Pleural Cavity with Drainage Device, Percutaneous Approach (ICD-10-PCS; principal; 2025-01-26)
DX: C34.31 Malignant neoplasm of lower lobe, right bronchus or lung (principal); J96.21 Acute and chronic respiratory failure with hypoxia; J18.9 Pneumonia, unspecified organism; I50.33 Acute on chronic diastolic (congestive) heart failure; C78.6 Secondary malignant neoplasm of retroperitoneum and peritoneum; C25.9 Malignant neoplasm of pancreas, unspecified; J44.0 Chronic obstructive pulmonary disease with (acute) lower respiratory infection; E87.3 Alkalosis; J98.11 Atelectasis; J91.0 Malignant pleural effusion; C78.89 Secondary malignant neoplasm of other digestive organs; C79.71 Secondary malignant neoplasm of right adrenal gland; C79.72 Secondary malignant neoplasm of left adrenal gland; C22.1 Intrahepatic bile duct carcinoma; Z51.5 Encounter for palliative care; Z66 Do not resuscitate; I95.89 Other hypotension; K21.9 Gastro-esophageal reflux disease without esophagitis; R00.0 Tachycardia, unspecified; E78.5 Hyperlipidemia, unspecified; R33.9 Retention of urine, unspecified; M06.9 Rheumatoid arthritis, unspecified; R53.1 Weakness; I80.8 Phlebitis and thrombophlebitis of other sites; F41.9 Anxiety disorder, unspecified; R53.83 Other fatigue; J43.9 Emphysema, unspecified; E83.42 Hypomagnesemia; D64.81 Anemia due to antineoplastic chemotherapy; I11.0 Hypertensive heart disease with heart failure; E87.70 Fluid overload, unspecified; Z87.891 Personal history of nicotine dependence; Z79.899 Other long term (current) drug therapy; Z85.3 Personal history of malignant neoplasm of breast; Z90.12 Acquired absence of left breast and nipple